=== PATIENT | male | born 1935 | race Caucasian/White ===

== ENCOUNTER 2022-09-17 11:49 | Inpatient (IN) | payer OTHER ==
[~2022-09-17] VITALS: Ht 170.2 cm; Wt 72.6 kg
[2022-09-17 11:55] VITALS: BP 125/78
[2022-09-17] MEDS ORDERED: OMEP40EC23 PO (12:17)
[2022-09-17] MEDS ORDERED: FLUO40CA6 PO (12:17)
[2022-09-17] MEDS ORDERED: GABA600T12 PO (12:17)
[2022-09-17] MEDS ORDERED: FINA5TAB1 PO (12:17)
[2022-09-17] MEDS ORDERED: HYDR-5080 PO (12:17)
[2022-09-17] MEDS ORDERED: FURO-572 PO (12:17)
[2022-09-17] MEDS ORDERED: DOCU-299 PO (12:17)
[2022-09-17] MEDS ORDERED: AMLO5TAB PO (12:17)
[2022-09-17] MEDS ORDERED: FAMO-90 PO (12:17)
[2022-09-17] MEDS ORDERED: METF-346 PO (12:17)
[2022-09-17] MEDS ORDERED: TAMS0.4C96 PO (12:17)
[2022-09-17] MEDS ORDERED: LOSA100T51 PO (12:17)
[2022-09-17] MEDS ORDERED: ALPR1TAB2 PO (12:17)
[2022-09-17] MEDS ORDERED: GLIP5TER PO (12:17)
--- NOTE | 2022-09-17 12:20 | NUR ---
87 Y/O M SRINIVASAJennifer FROM [facility] WITH C/O ABNORMAL LABS. PER EMS FACILITY CALLED 911 STATING PATIENT WITH LOW PLATELETS AND BILATERAL UPPER AND LOWER EXTREMITY HAND AND FEET SWELLING. PT C/O PAIN 9/10 ON HIS SACRAL FOR ONE WEEK. PT DOES HAVE A STAGE TWO SACRAL WOUND. PMH: HTN, DM, ANEMIA, ANXIETY NKDA
--- NOTE | 2022-09-17 12:47 | NUR ---
LAB AT BEDSIDE.
[2022-09-17 13:26] LABS: BASOPHILS % (AUTO) 0.3 % (0.0-2.0); EOSINOPHILS % (AUTO) 0.6 % (0.0-4.0); HEMATOCRIT 22.3 % (36-52); HEMOGLOBIN 7.1 g/dL (12.0-18.0); LYMPHOCYTES # (AUTO) 0.2 K/uL (2.0-11.5); LYMPHOCYTES % (AUTO) 4.4 % (20.5-51.1); MEAN CORPUSCULAR HEMOGLOBIN 28 pg (27-31); MEAN CORPUSCULAR HGB CONC 32 g/dL (33-37); MEAN CORPUSCULAR VOLUME 87.8 fL (80-94); MONOCYTES # (AUTO) 0.2 K/uL (0.8-1.0); MONOCYTES % (AUTO) 4.2 % (1.7-9.3); NEUTROPHILS # (AUTO) 4.6 K/uL (1.8-7.7); NEUTROPHILS % (AUTO) 90.5 % (42.2-75.2); RED BLOOD CELL COUNT(AUTO) 2.54 MIL/uL (4.20-6.10); RED CELL DISTRIBUTION WIDTH 17.8 % (11.6-13.7)
[2022-09-17 13:48] LABS: ANION GAP 14.4 (8-16); CARBON DIOXIDE 20.4 mmol/L (21-32); CHLORIDE 100 mmol/L (98-107); GLUCOSE 112 mg/dL (74-106); POTASSIUM 3.8 mmol/L (3.5-5.1); SODIUM SERUM 131 mmol/L (136-145); UREA NITROGEN, BLOOD 23 mg/dL (7-18)
[2022-09-17 13:50] LABS: PLATELET COUNT (AUTO) 19 K/uL (140-450)
--- NOTE | 2022-09-17 14:22 | NUR ---
MASON SWABED AND WALKED TO THE LAB.
--- NOTE | 2022-09-17 16:05 | NUR ---
ADMITTED FROM ER VIA [facility]. A & O X3. SPEECH CLEAR. NO C/O PAIN. NO SOB, NOTED. EDEMA BUE AND BLE PITTING EDEMA 2+. ELEVATED WITH PILLOWS. PRESSURE ULCER ON SACRAL. EXPLAINED DIAGNOSIS, PLAN OF CARE, PAIN MANAGEMENT TEACHING, USE OF CALL LIGHT/BED/TV/BATHROOM. VERBALIZED UNDERSTANDING. FALL PRECAUTION APPLIED. CALL LIGHT WITHIN REACH.
--- NOTE | 2022-09-17 16:12 | NUR ---
Pt report given to YNES GUO. Transfer of care at this time.
--- NOTE | 2022-09-17 16:20 | NUR ---
PAGED DR. JAMES REGARDING ADMISSION ORDERS.
--- NOTE | 2022-09-17 16:35 | NUR ---
CALLED WILL DANIELS AT [phone] AND SPOKE TO LAYNE LEBLANC REGARDING ADDITIONAL PT. ADMISSION MEDICAL INFORMATION.
--- NOTE | 2022-09-17 16:50 | NUR ---
Patient's Plan of Care was discussed and reviewed with VALUE ANALYST: yaneth lomas
--- NOTE | 2022-09-17 17:00 | NUR ---
The patient's care was reviewed and supervised by Jamaica Lemon RN.
[2022-09-17] MEDS ORDERED: ACETAMINOPHEN 325 MG TAB PO PRN (18:15)
[2022-09-17] MEDS ORDERED: HYDROcodone/APAP 7.5/325 MG 1 TAB PO PRN (18:15)
[2022-09-17] MEDS ORDERED: ZOLPIDEM 5 MG TAB PO PRN (18:15)
[2022-09-17] MEDS ORDERED: POTASSIUM CHLORIDE 10 MEQ TABER PO PRN (18:15)
[2022-09-17] MEDS ORDERED: guaiFENesin DM 200/20 MG-10 ML 10 ML UDC PO PRN (18:15)
[2022-09-17] MEDS ORDERED: DOCUSATE SODIUM 100 MG GELCAP PO PRN (18:15)
[2022-09-17] MEDS ORDERED: ALPRAZolam 0.5 MG TAB PO SCH (18:15)
[2022-09-17] MEDS ORDERED: ONDANSETRON 4 MG/2 ML VIAL IM/IVP PRN (18:15)
--- NOTE | 2022-09-17 19:25 | NUR ---
RECD. RESTING IN BED, AWAKE, A/OX2. RESPIRATION EVEN AND UNLABORED. IV SALINE LOCK AT THE RIGHT AC G2O, PATENT AND INTACT. NOTED BILATERAL EDEMA ON BOTH ARMS AND PITTING EDEMA 2+ ON BLE, ELEVATED ON PILLOWS. ABLE TO VERBALIZED NEEDS. USES THE URINAL. MADE AWARE OF ORDERED PLATELET AND FROZEN FFP TRANSFUSION. NEEDS REINFORCEMENT. DENIES PAIN 0/10.
[2022-09-17 19:55] LABS: AMYLASE 19 U/L (25-115); CHOL/HDL RATIO 3.1 (1-4.5); HDL CHOLESTEROL 31 mg/dL (40-60); LDL (CALC) 56 mg/dL (60-100); LIPASE 41 U/L (73-393); MAGNESIUM 1.6 mg/dL (1.8-2.4); THYROID STIMULATING HORMONE 3.21 uIU/mL (0.34-3.74); TRIGLYCERIDES 41 mg/dL (30-150)
[2022-09-17 20:00] VITALS: BP 121/57
--- NOTE | 2022-09-17 21:20 | NUR ---
TAKEN TO RADIOLOGY VIA BED FOR CT SCAN OF ABD AND PELVIS WITHOUT CONTRAST.
--- NOTE | 2022-09-17 21:45 | NUR ---
ROCEPHIN IVPB ADMINISTERED BY PENNY GUO. TOLERATED WELL.
[2022-09-17] MEDS: metFORMIN 500 MG TAB PO SCH (21:58)
--- NOTE | 2022-09-17 22:40 | NUR ---
FOLLOW UP WITH IVETTE OF BLOOD BANK, PLATELET FOR TRANSFUSION WILL BE AVAILABLE AFTER THREE HOURS, WAS ALREADY ORDERED BY LAB.
[2022-09-18] VITALS: BP 100/50
--- NOTE | 2022-09-18 | NUR ---
SLEEPING COMFORTABLY IN BED. RESPIRATION EVEN AND UNLABORED.
--- NOTE | 2022-09-18 02:25 | NUR ---
1 UNIT PHERESIS PLATELET INFUSION STARTED, WILL MONITOR FOR ANY SIGNS OF REACTION.
--- NOTE | 2022-09-18 03:25 | NUR ---
PLATELET TRANSFUSION FINISHED, NO SIGNS OF REACTION NOTED.
[2022-09-18 04:00] VITALS: BP 136/61
--- NOTE | 2022-09-18 04:15 | NUR ---
SENT TO MESSAGE TO DR. JAMES. TRANSFUSION DONE, LAB INQUIRING IF STILL NEEDED TO GIVE PLASMA SO THEY CAN ORDER.
--- NOTE | 2022-09-18 06:05 | NUR ---
DR JAMES REPLIED TO GIVE THE ORDERED PLASMA. INFORMED LAB ABOUT IT.
--- NOTE | 2022-09-18 07:15 | NUR ---
RECEIVED REPORT FROM NIGHT NURSE BILLIE FOR CONTINUITY OF CARE. INITIAL ASSESSMENT DONE. IV SITE INTACT. ON O2 @ 2L/NC. CURRENTLY ON NPO EXCEPT MEDS. NO C/O PAIN OR DISCOMFORT. CALL LIGHT KEPT WITHIN REACH. WILL CONTINUE TO MONITOR.
[2022-09-18 07:16] LABS: BASOPHILS % (AUTO) 0.4 % (0.0-2.0); EOSINOPHILS # (AUTO) 0.1 K/uL (0-0.4); EOSINOPHILS % (AUTO) 1.6 % (0.0-4.0); HEMATOCRIT 21.4 % (36-52); LYMPHOCYTES # (AUTO) 0.3 K/uL (2.0-11.5); LYMPHOCYTES % (AUTO) 5.4 % (20.5-51.1); MEAN CORPUSCULAR HEMOGLOBIN 28 pg (27-31); MEAN CORPUSCULAR HGB CONC 33 g/dL (33-37); MEAN CORPUSCULAR VOLUME 86.3 fL (80-94); MONOCYTES # (AUTO) 0.3 K/uL (0.8-1.0); NEUTROPHILS # (AUTO) 4.3 K/uL (1.8-7.7); NEUTROPHILS % (AUTO) 86.6 % (42.2-75.2); PLATELET COUNT (AUTO) 33 K/uL (140-450); RED BLOOD CELL COUNT(AUTO) 2.48 MIL/uL (4.20-6.10); RED CELL DISTRIBUTION WIDTH 17.8 % (11.6-13.7)
--- NOTE | 2022-09-18 07:20 | NUR ---
ENDORSED TO AM SHIFT NURSE FOR CONTINUITY OF CARE.
[2022-09-18 07:31] LABS: ANION GAP 12.5 (8-16); CARBON DIOXIDE 24.3 mmol/L (21-32); CHLORIDE 98 mmol/L (98-107); CREATININE 0.9 mg/dL (0.6-1.3); GLUCOSE 129 mg/dL (74-106); POTASSIUM 3.8 mmol/L (3.5-5.1); SODIUM SERUM 131 mmol/L (136-145); UREA NITROGEN, BLOOD 20 mg/dL (7-18)
[2022-09-18 08:00] VITALS: BP 149/67
[2022-09-18 08:08] LABS: T4 (THYROXINE) 7.9 ug/dL (4.5-12.0)
[2022-09-18] MEDS ORDERED: NON-FORMULARY ITEM (Losartan Potassium 1 TAB) PO SCH (09:00)
[2022-09-18] MEDS: TAMSULOSIN 0.4 MG CAP PO SCH (10:05)
[2022-09-18] MEDS: ALPRAZolam 0.5 MG TAB PO SCH ×3 (10:06→18:37)
[2022-09-18] MEDS: LOSARTAN 50 MG TAB PO SCH (10:06)
[2022-09-18] MEDS: PANTOPRAZOLE 40 MG TABEC PO SCH (10:07)
[2022-09-18] MEDS: glipiZIDE ER 5 MG TABER PO SCH (10:07)
[2022-09-18] MEDS: FUROSEMIDE 20 MG TAB PO SCH (10:07)
[2022-09-18] MEDS: FINASTERIDE 5 MG TAB PO SCH (10:07)
--- NOTE | 2022-09-18 10:07 | NUR ---
SCHEDULED MEDICATIONS GIVEN. TOLERATING WELL.
[2022-09-18] MEDS: MAGNESIUM OXIDE 400 MG TAB PO SCH (10:08)
[2022-09-18] MEDS: FLUoxetine 20 MG CAP PO SCH (10:08)
[2022-09-18] MEDS: amLODIPine 5 MG TAB PO SCH (10:08)
[2022-09-18] MEDS: metFORMIN 500 MG TAB PO SCH ×2 (10:24→18:37)
--- NOTE | 2022-09-18 10:40 | NUR ---
URINE SPECIMEN COLLECTED VIA CLEAN CATCH. SEND TO LAB.
--- NOTE | 2022-09-18 11:40 | NUR ---
FRESH FROZEN PLASMA TRANSFUSION STARTED. NO ADVERSE REACTION NOTED.
--- NOTE | 2022-09-18 12:44 | NUR ---
PATIENT HAS BEEN SCREENED AND CATEGORIZED HIGH NUTRITION RISK. PATIENT WILL BE SEEN WITHIN 1-2 DAYS OF ADMISSION. RAVI STUBBS RD
--- NOTE | 2022-09-18 13:24 | NUR ---
PT DAUGHTER AT BEDSIDE REQUESTING FOR DIET UPGRADE AND CONT HOME MED GABAPENTIN. DR. JAMES NOTIFIED, RECEIVED NEW ORDERS: UPGRADE DIET TO MECH SOFT, GABAPENTIN 300 MG TID. NOTED AND CARRIED OUT.
[2022-09-18 14:53] LABS: APPEARANCE,URINE CLEAR (CLEAR); BILIRUBIN,URINE NEGATIVE (NEGATIVE); BLOOD, URINE NEGATIVE (NEGATIVE); COLOR,URINE YELLOW (YELLOW); LEUKOCYTE ESTERASE ,URINE NEGATIVE (NEGATIVE); NITRITE, URINE NEGATIVE (NEGATIVE); PH,URINE 5.5 (5.0-9.0); UGLUCOSE NEGATIVE (NEGATIVE)
--- NOTE | 2022-09-18 15:20 | NUR ---
ADMINISTERED SCHEDULED MEDICATIONS. TOLERATING WELL.
--- NOTE | 2022-09-18 15:22 | NUR ---
FRESH FROZEN PLASMA TRANSFUSION COMPLETED. TOLERATING WELL. NO ADVERSE REACTION NOTED.
--- NOTE | 2022-09-18 15:35 | NUR ---
DC PLANNING ASSESSMENT COMPLETE PLEASE REFER TO ASSESSMENT FOR ADDITIONAL DETAILS SW MET WITH PT AND PT'S DAUGHTER AT BEDSIDE TO COMPLETE ASSESSMENT. PT IS AN 87 YR OLD MALE ADMITTED TO [facility] FROM HOME WITH DX OF THROMBOCYTOPENIA. PT HAS PAST MEDICAL HX OF HYPERTENSION, DIABETES, AND ANEMIA, CURRENTLY BEING TREATED WITH ANTIBIOTICS FOR PNEUMONIA. PT IS REPORTED TO UTILIZE FWW, WC AND IS REPORTED TO REQUIRE ASSISTANCE WITH ADL'S THAT [employer] [facility] WITH. PT CURRENTLY IN SKILLED CARE WITH [facility], RECEIVING PT AND OT. DATE OF ADMISSION 09/09/22 PT AND PT'S DAUGHTER ARLEEN REPORT TENTATIVE DC PLAN IS FOR PT TO RETURN TO [facility] ONCE MEDICALLY STABLE. Addendum: 09/18/22 at 1536 by Kanu GARNICA Amended: Links added.
--- NOTE | 2022-09-18 18:01 | NUR ---
P.T. NOTES P.T. EVAL COMPLETED; REFER TO EVAL FOR DETAILS.
--- NOTE | 2022-09-18 18:37 | NUR ---
SCHEDULED MEDICATIONS GIVEN. TOLERATING WELL.
--- NOTE | 2022-09-18 19:30 | NUR ---
BEDSIDE REPORT GIVEN TO SU FOR CONTINUITY OF CARE. REMAINS STABLE.
--- NOTE | 2022-09-18 19:31 | NUR ---
RECEIVED REPORT FROM BRANT JENKINS FOR CONTINUITY OF CARE. PT AWAKE IN BED. ON 2L NC SATTING AT 95%. NO DISTRESS NOTED. INITIAL ASSESSMENT DONE. POC DISCUSSED WITH PT AND BRANT LOCO. CALL LIGHT WITHIN REACH. SAFETY PRECAUTIONS IN PLACE.
[2022-09-18 20:00] VITALS: BP 121/58
--- NOTE | 2022-09-18 20:00 | NUR ---
Patient's Plan of Care was discussed and reviewed with LEAD JAVA DEVELOPER ARCHITECT: SU AGUAYO
[2022-09-19 04:00] VITALS: BP 119/56
--- NOTE | 2022-09-19 05:06 | NUR ---
DID MORNING CARE. PT TOLERATED WELL. PT REMAINED CLEAN AND DRY. NO COMPLAINTS OF PAIN. NO DISTRESS NOTED. SAFETY PRECAUTIONS IN PLACE.
--- NOTE | 2022-09-19 07:10 | NUR ---
[facility] CONTINUITY OF CARE. INITIAL ASSESSMENT DONE. IV SITE INTACT. ON CONT O2 l/NC. nO RESPIRATORY DISTRESS NOTED. CALL LIGHT KEPT WITHIN REACH. WILL CONTINUE TO MONITOR.
--- NOTE | 2022-09-19 07:15 | NUR ---
GAVE BEDSIDE REPORT TO CECILLE JENKINS FOR CONTINUITY OF CARE. PT IS STABLE.
[2022-09-19 07:43] LABS: BASOPHILS % (AUTO) 0.1 % (0.0-2.0); EOSINOPHILS # (AUTO) 0.1 K/uL (0-0.4); EOSINOPHILS % (AUTO) 1.8 % (0.0-4.0); LYMPHOCYTES # (AUTO) 0.2 K/uL (2.0-11.5); LYMPHOCYTES % (AUTO) 4.3 % (20.5-51.1); MEAN CORPUSCULAR HEMOGLOBIN 28 pg (27-31); MEAN CORPUSCULAR HGB CONC 33 g/dL (33-37); MEAN CORPUSCULAR VOLUME 85.4 fL (80-94); MONOCYTES # (AUTO) 0.2 K/uL (0.8-1.0); MONOCYTES % (AUTO) 4.9 % (1.7-9.3); NEUTROPHILS # (AUTO) 3.6 K/uL (1.8-7.7); NEUTROPHILS % (AUTO) 88.9 % (42.2-75.2); PLATELET COUNT (AUTO) 25 K/uL (140-450); RED BLOOD CELL COUNT(AUTO) 2.12 MIL/uL (4.20-6.10); RED CELL DISTRIBUTION WIDTH 17.3 % (11.6-13.7); WHITE BLOOD COUNT (AUTO) 4.1 K/uL (4.8-10.8)
[2022-09-19 07:53] LABS: ANION GAP 11.3 (8-16); CARBON DIOXIDE 24.3 mmol/L (21-32); CHLORIDE 100 mmol/L (98-107); CREATININE 0.7 mg/dL (0.6-1.3); GLUCOSE 134 mg/dL (74-106); POTASSIUM 3.6 mmol/L (3.5-5.1); SODIUM SERUM 132 mmol/L (136-145); UREA NITROGEN, BLOOD 21 mg/dL (7-18)
[2022-09-19 08:00] VITALS: BP 127/54
--- NOTE | 2022-09-19 08:00 | NUR ---
Patient's Plan of Care was discussed and reviewed with CECILLE: MIRTA
[2022-09-19 08:22] LABS: HEMATOCRIT 18.1 % (36-52)
--- NOTE | 2022-09-19 08:29 | NUR ---
RECEIVED CRITICAL LAB RESULT HGB 6.0, HCT 18.1. DR. JAMES NOTIFIED AWAITING FOR RESPONSE.
[2022-09-19] MEDS: ALPRAZolam 0.5 MG TAB PO SCH ×3 (08:43→18:20)
[2022-09-19] MEDS: metFORMIN 500 MG TAB PO SCH ×2 (08:43→18:20)
[2022-09-19] MEDS: TAMSULOSIN 0.4 MG CAP PO SCH (08:43)
[2022-09-19] MEDS: FUROSEMIDE 20 MG TAB PO SCH (08:44)
[2022-09-19] MEDS: MAGNESIUM OXIDE 400 MG TAB PO SCH (08:44)
[2022-09-19] MEDS: FINASTERIDE 5 MG TAB PO SCH (08:44)
[2022-09-19] MEDS: amLODIPine 5 MG TAB PO SCH (08:45)
[2022-09-19] MEDS: PANTOPRAZOLE 40 MG TABEC PO SCH (08:45)
[2022-09-19] MEDS: glipiZIDE ER 5 MG TABER PO SCH (08:45)
[2022-09-19] MEDS: LOSARTAN 50 MG TAB PO SCH (08:45)
--- NOTE | 2022-09-19 08:45 | NUR ---
SCHEDULED MEDICATIONS GIVEN. TOLERATING WELL.
[2022-09-19] MEDS: FLUoxetine 20 MG CAP PO SCH (08:46)
[2022-09-19] MEDS: GABAPENTIN 300 MG CAP PO SCH ×3 (08:46→18:20)
--- NOTE | 2022-09-19 09:53 | NUR ---
RECEIVED NEW ORDER FROM DR. JAMES, 1 PACKED RBC. ORDER NOTED AND CARRIED OUT.
[2022-09-19] MEDS: SKINTEGRITY HYDROGEL TP SCH (12:50)
[2022-09-19] MEDS ORDERED: Z-GUARD PASTE TP PRN (12:50)
--- NOTE | 2022-09-19 12:50 | NUR ---
WOUND CARE DONE. NO BLEEDING, NO REDNESS. TOLERATING WELL.
--- NOTE | 2022-09-19 13:46 | NUR ---
BLOOD TRANSFUSION PACKED RBC STARTED. NO ADVERSE REACTION NOTED.
--- NOTE | 2022-09-19 14:17 | NUR ---
PT COMPLAINING SOB, INCREASED O2 TO 4L/NC. NOTED WHEEZING. DR. JAMES NOTIFIED WITHN EW ORDER CHEST X-RAY. NOTED AND CARRIED OUT.
--- NOTE | 2022-09-19 14:55 | NUR ---
09/19/22 RD INITIAL ASSESSMENT COMPLETED PLEASE REFER TO NUTRITION ASSESSMENT UNDER CARE ACTIVITY FOR ESTIMATED NUTRITIONAL NEEDS. 1. CONTINUE MECHANICAL SOFT DIET TOLERATED 2. RECOMMEND WU BID - WILL PROVIDE 160 KCALS, 5 G PROTEIN 3. MONITOR GI, PO INTAKE, LAB VALUES. 4. RD TO FOLLOW-UP 3-5 DAYS, MODERATE RISK REVIEWED BY RAVI STUBBS RD
--- NOTE | 2022-09-19 15:09 | NUR ---
SCHEDULED PO MEDICATIONS GIVEN. TOLERATING WELL.
[2022-09-19 16:00] VITALS: BP 120/66
--- NOTE | 2022-09-19 17:05 | NUR ---
RECEIVED CALLED FROM JOSSIE DANIELS SPOKE TO STEPAN. QUESTIONS ANSWERED.
--- NOTE | 2022-09-19 17:10 | NUR ---
BLOOD TRANSFUSION COMPLETED. NO ADVERSE REACTION NOTED.
--- NOTE | 2022-09-19 18:20 | NUR ---
SCHEDULED MEDICATIONS GIVEN. TOLERATING WELL.
--- NOTE | 2022-09-19 19:15 | NUR ---
REPORT GIVEN TO TODD FOR CONTINUITY OF CARE. REMAINS STABLE.
--- NOTE | 2022-09-19 19:20 | NUR ---
RECEIVED REPORT FROM DAY SHIFT NURSE FOR CONTINUITY OF CARE. PT IS CURRENTLY RESTING IN BED. PT NOT IN ANY DISTRESS. PT HAS RIGHT AC 20 GAUGE SALINE LOCK. WOUND ON SACRAL. WILL CONTINUE TO MONITOR THE PT.
--- NOTE | 2022-09-20 03:00 | NUR ---
PT IS SLEEPING COMFORTABLY IN BED. PT NOT IN ANY DISTRESS. WILL CONTINUE TO MONITOR.
[2022-09-20 04:00] VITALS: BP 141/71
--- NOTE | 2022-09-20 07:05 | NUR ---
RECEIVED REPORT FROM NIGHT NURSE TODD FOR CONTINUITY OF CARE. ONT CONT. O2 2L VIA N/C. IV INTACT. NOT IN ANY DISTRESS NOTED. CALL LIGHT KEPT WITHIN REACH. WILL CONTINUE TO MONITOR.
--- NOTE | 2022-09-20 07:10 | NUR ---
ENDORSED PT TO DAY SHIFT NURSE FOR CONTINUITY OF CARE. PT IS STABLE.
[2022-09-20 07:21] LABS: ANION GAP 13.8 (8-16); CARBON DIOXIDE 22.9 mmol/L (21-32); CHLORIDE 102 mmol/L (98-107); CREATININE 0.8 mg/dL (0.6-1.3); GLUCOSE 139 mg/dL (74-106); POTASSIUM 3.7 mmol/L (3.5-5.1); SODIUM SERUM 135 mmol/L (136-145); UREA NITROGEN, BLOOD 16 mg/dL (7-18)
[2022-09-20 07:26] LABS: HEMATOCRIT 21.7 % (36-52); HEMOGLOBIN 7.2 g/dL (12.0-18.0); MEAN CORPUSCULAR HEMOGLOBIN 29 pg (27-31); MEAN CORPUSCULAR HGB CONC 33 g/dL (33-37); MEAN CORPUSCULAR VOLUME 86.9 fL (80-94); PLATELET COUNT (AUTO) 27 K/uL (140-450); RED CELL DISTRIBUTION WIDTH 17.2 % (11.6-13.7); WHITE BLOOD COUNT (AUTO) 4.8 K/uL (4.8-10.8)
[2022-09-20 08:00] VITALS: BP 143/51
[2022-09-20] MEDS: SKINTEGRITY HYDROGEL TP SCH (08:34)
[2022-09-20] MEDS: FINASTERIDE 5 MG TAB PO SCH (08:35)
[2022-09-20] MEDS: LOSARTAN 50 MG TAB PO SCH (08:35)
[2022-09-20] MEDS: amLODIPine 5 MG TAB PO SCH (08:35)
[2022-09-20] MEDS: GABAPENTIN 300 MG CAP PO SCH ×3 (08:35→18:20)
[2022-09-20] MEDS: glipiZIDE ER 5 MG TABER PO SCH (08:36)
[2022-09-20] MEDS: ALPRAZolam 0.5 MG TAB PO SCH ×3 (08:36→18:20)
[2022-09-20] MEDS: TAMSULOSIN 0.4 MG CAP PO SCH (08:36)
[2022-09-20] MEDS: FLUoxetine 20 MG CAP PO SCH (08:36)
[2022-09-20] MEDS: metFORMIN 500 MG TAB PO SCH ×2 (08:36→18:20)
--- NOTE | 2022-09-20 08:36 | NUR ---
SCHEDULED PO MEDICATIONS GIVEN. TOLERATING WELL.
[2022-09-20] MEDS: MAGNESIUM OXIDE 400 MG TAB PO SCH (08:37)
[2022-09-20] MEDS: PANTOPRAZOLE 40 MG TABEC PO SCH (08:37)
[2022-09-20] MEDS: FUROSEMIDE 20 MG TAB PO SCH (08:37)
[2022-09-20 10:14] LABS: EOSINOPHILS % (MANUAL) 3 % (0-4); LYMPHOCYTES % (MANUAL) 4 % (20-46); MONOCYTES % (MANUAL) 6 % (5-12)
[2022-09-20 13:15] LABS: ALBUMIN 1.7 g/dL (3.4-5.0); TOTAL BILIRUBIN 0.9 mg/dL (0.0-1.0)
[2022-09-20 13:24] LABS: BILIRUBIN,DIRECT 0.3 mg/dL (0.0-0.3)
--- NOTE | 2022-09-20 13:30 | NUR ---
REASON FOR EVALUATION: SACRAL ULCER WOUND ASSESSMENT COMPLETED ON THIS 87 Y/O MALE ADMITTED TO [facility] UN[facility] FOR THROMBOCYTOPENIA. PATIENT IS FROM [facility]. PAST MEDICAL HISTORY INCLUDES HYPERTENSION, ANEMIA, BLOOD DISORDER, DIABETES. ALL ABOVE INFORMATION WAS OBTAINED FROM THE ADMISSION H&P. SKIN IS WARM TO TOUCH. REQUIRES ASSISTANCE WITH TURNING. PLAN OF CARE AND PRESSURE PREVENTATIVE MEASURES DISCUSSED WITH PATIENT AND PRIMARY RN. PATIENT UNABLE TO COMPREHEND. PATIENT ADMITTED WITH PRESSURE ULCER TO [facility] COMORBIDITIES RELATED TO FURTHER SKIN BREAKDOWN SUCH IMPAIRED. INTEGUMENTARY: - SACRALCOCCYX STAGE II PRESSURE ULCER 9 X 5 X 0.1 CM, SUPERFICIAL, NON-BLANCHABLE, NO DRAINAGE, NO ODOR. PERIWOUND PINK, DRY, INTACT. RECOMMENDATIONS: - SACRALCOCCYX STAGE II PRESSURE ULCER: CLEANSE WITH NS, PAT DRY, APPLY HYDROGEL, AND COVER WITH FOAM DRESSING DAILY AND PRN IF SOILED. - OFFLOAD BILATERAL HEELS BY PLACING BILATERAL HEEL PROTECTORS. - TURN AND REPOSITION PATIENT Q2H TO LEFT AND RIGHT SIDE TO OFFLOAD SACRALCOCCYX. - ASSESS AND MONITOR SKIN CONDITION DURING POSITION CHANGE. PLEASE PAY ATTENTION TO SACRALCOCCYX AND HEELS. - KEEP SKIN DRY AND CLEAN AT ALL TIMES. - RD CONSULT RECOMMENDATIONS DISCUSSED WITH PRIMARY RN. WILL FOLLOW-UP PATIENT Q7-10 DAYS AND PRN. PLEASE CONTACT WOUND CARE NURSE FOR ANY CONCERNS AND CHANGES IN WOUND CONDITION.
--- NOTE | 2022-09-20 13:34 | NUR ---
DR. HERRING NOTIFIED LAB RESULT RESULT HGB 7.2 WITH NO NEW ORDER AT THIS TIME.
--- NOTE | 2022-09-20 14:09 | NUR ---
SCHEDULED MEDICATIONS GIVEN. TOLERATING WELL. STOOL SPECIMEN COLLECTED FOR STOOL OCCULT BLOOD.
--- NOTE | 2022-09-20 18:20 | NUR ---
ADMINISTERED SCHEDULED MEDICATIONS. TOLERATING WELL.
--- NOTE | 2022-09-20 19:20 | NUR ---
REPORT GIVEN TO NIGHT NURSE TODD FOR CONTINUITY OF CARE. REMAINS STABLE.
--- NOTE | 2022-09-20 19:25 | NUR ---
RECEIVED REPORT FROM DAY SHIFT NURSE ALICE FOR CONTINUITY OF CARE. PT IS CURRENTLY RESTING IN BED. PT NOT IN ANY DISTRESS. PT HAS RIGHT AC 20 GAUGE SALINE LOCK. WOUND ON SACRAL. POC DISCUSSED. WILL CONTINUE TO MONITOR THE PT.
[2022-09-20 20:00] VITALS: BP 128/75
--- NOTE | 2022-09-21 00:35 | NUR ---
PT IS SLEEPING COMFORTABLY IN BED. PT NOT IN ANY DISTRESS. WILL CONTINUE TO MONITOR.
[2022-09-21] MEDS: SKINTEGRITY HYDROGEL TP SCH ×3 (01:02→21:32)
[2022-09-21] MEDS: GAUZE TP SCH ×3 (01:02→21:32)
--- NOTE | 2022-09-21 03:33 | NUR ---
PT WAS CLEANED AND CHANGED. TOLERATED IT WELL. DRESSING CHANGED. WILL CONTINUE TO MONITOR THE PT.
[2022-09-21 04:00] VITALS: BP 114/59
[2022-09-21 07:16] LABS: BASOPHILS % (AUTO) 0.2 % (0.0-2.0); EOSINOPHILS # (AUTO) 0.1 K/uL (0-0.4); EOSINOPHILS % (AUTO) 2.4 % (0.0-4.0); HEMATOCRIT 21.1 % (36-52); HEMOGLOBIN 7.1 g/dL (12.0-18.0); LYMPHOCYTES # (AUTO) 0.2 K/uL (2.0-11.5); LYMPHOCYTES % (AUTO) 4.3 % (20.5-51.1); MEAN CORPUSCULAR HEMOGLOBIN 29 pg (27-31); MEAN CORPUSCULAR HGB CONC 34 g/dL (33-37); MEAN CORPUSCULAR VOLUME 85.4 fL (80-94); MONOCYTES # (AUTO) 0.2 K/uL (0.8-1.0); MONOCYTES % (AUTO) 3.6 % (1.7-9.3); NEUTROPHILS # (AUTO) 3.9 K/uL (1.8-7.7); NEUTROPHILS % (AUTO) 89.5 % (42.2-75.2); PLATELET COUNT (AUTO) 26 K/uL (140-450); RED BLOOD CELL COUNT(AUTO) 2.47 MIL/uL (4.20-6.10); RED CELL DISTRIBUTION WIDTH 17.1 % (11.6-13.7); WHITE BLOOD COUNT (AUTO) 4.4 K/uL (4.8-10.8)
--- NOTE | 2022-09-21 07:20 | NUR ---
ENDORSED PT TO DAY SHIFT RN FOR CONTINUITY OF CARE. PT IS STABLE.
[2022-09-21 07:22] LABS: ANION GAP 12.9 (8-16); CARBON DIOXIDE 23.8 mmol/L (21-32); CHLORIDE 102 mmol/L (98-107); CREATININE 0.8 mg/dL (0.6-1.3); GLUCOSE 129 mg/dL (74-106); POTASSIUM 3.7 mmol/L (3.5-5.1); SODIUM SERUM 135 mmol/L (136-145); UREA NITROGEN, BLOOD 15 mg/dL (7-18)
[2022-09-21 08:00] VITALS: BP 130/62
--- NOTE | 2022-09-21 08:00 | NUR ---
NURSE REPORT REPORT OBTAINED FROM NIGHT NURSE TODD AT 0720 AND THIS NURSE ASSUMED CARE OF PATIENT. VSS. AFEB. NO C/O PAIN OR DISCOMFORT. KELLEN GRIFFITH RN
[2022-09-21] MEDS: FLUoxetine 20 MG CAP PO SCH (08:55)
[2022-09-21] MEDS: metFORMIN 500 MG TAB PO SCH ×2 (08:55→18:31)
[2022-09-21] MEDS: glipiZIDE ER 5 MG TABER PO SCH (08:56)
[2022-09-21] MEDS: PANTOPRAZOLE 40 MG TABEC PO SCH (08:56)
[2022-09-21] MEDS: FINASTERIDE 5 MG TAB PO SCH (08:57)
[2022-09-21] MEDS: FUROSEMIDE 20 MG TAB PO SCH (08:57)
[2022-09-21] MEDS: GABAPENTIN 300 MG CAP PO SCH ×3 (08:57→18:31)
[2022-09-21] MEDS: LOSARTAN 50 MG TAB PO SCH (09:04)
[2022-09-21] MEDS: amLODIPine 5 MG TAB PO SCH (09:05)
[2022-09-21] MEDS: MAGNESIUM OXIDE 400 MG TAB PO SCH (09:06)
[2022-09-21] MEDS: TAMSULOSIN 0.4 MG CAP PO SCH (09:13)
[2022-09-21] MEDS: ALPRAZolam 0.5 MG TAB PO SCH ×3 (09:13→18:31)
--- NOTE | 2022-09-21 11:45 | NUR ---
NURSE DISCHARGE NOTE D/C INSTRUCTIONS GIVEN TO PATIENT. PATIENT ALREADY REMOVED HER OWN SL. CATHETER INTACT. NO BLEEDING. PATIENT VERBALIZED UNDERSTANDINGS OF INSTRUCTIONS. PATIENT ABLE TO AMBULATE OUTSIDE WITH STEADY GAIT. HER BABY DAD WAS PICKING HER UP. SHE REFUSED TO GIVE THE NAME OF THE PERSON.
--- NOTE | 2022-09-21 13:41 | NUR ---
NURSE NOTES DR HERRING WAS SENT MESSAGE TO CALL PATIENT DAUGHTER. HE ISN'T EATING MUCH AND CONDITION HAS WORSENED SINCE HE GOT HERE. WHEEZING HAS INCREASED.
[2022-09-21] MEDS ORDERED: ALBUTEROL 0.083% 2.5 MG/3 ML NEBU INH ONE (14:17)
--- NOTE | 2022-09-21 19:45 | NUR ---
NURSE REPORT REPORT GIVEN TO MADIE NURSE ARTI. ALL QUESTIONS ANSWERED. KELLEN GRIFFITH RN
[2022-09-21 20:07] VITALS: BP 130/62
--- NOTE | 2022-09-22 00:13 | NUR ---
PATIENT STABLE VITALS SIGNS IN NORMAL LIMITS SPO2 96% AT 3 LITERS CHANGED BY RT NOT COMPLAINING OF PAIN AT THIS TIME
--- NOTE | 2022-09-22 03:40 | NUR ---
PATIENT STABLE VITALS SIGNS IN NORMAL LIMITS NOT COMPLAINING OF PAIN SPO2 96% AT 3 LITTERS
[2022-09-22 04:00] VITALS: BP 137/63
--- NOTE | 2022-09-22 06:53 | NUR ---
PATIENT STABLE VITALS SIGNS IN NORMAL LIMITS NOT COMPLAINING OF PAIN AT THIS TIME
[2022-09-22] MEDS: metFORMIN 500 MG TAB PO SCH ×2 (08:00→17:00)
[2022-09-22 08:41] LABS: BASOPHILS % (AUTO) 0.2 % (0.0-2.0); EOSINOPHILS # (AUTO) 0.1 K/uL (0-0.4); EOSINOPHILS % (AUTO) 2.2 % (0.0-4.0); HEMATOCRIT 21.7 % (36-52); HEMOGLOBIN 7.1 g/dL (12.0-18.0); LYMPHOCYTES # (AUTO) 0.2 K/uL (2.0-11.5); LYMPHOCYTES % (AUTO) 7.5 % (20.5-51.1); MEAN CORPUSCULAR HEMOGLOBIN 29 pg (27-31); MEAN CORPUSCULAR HGB CONC 33 g/dL (33-37); MEAN CORPUSCULAR VOLUME 86.6 fL (80-94); MONOCYTES # (AUTO) 0.1 K/uL (0.8-1.0); MONOCYTES % (AUTO) 4.6 % (1.7-9.3); NEUTROPHILS # (AUTO) 2.5 K/uL (1.8-7.7); NEUTROPHILS % (AUTO) 85.5 % (42.2-75.2); PLATELET COUNT (AUTO) 22 K/uL (140-450); RED CELL DISTRIBUTION WIDTH 17.1 % (11.6-13.7); WHITE BLOOD COUNT (AUTO) 2.9 K/uL (4.8-10.8)
[2022-09-22 08:55] LABS: ANION GAP 13.6 (8-16); CARBON DIOXIDE 22.9 mmol/L (21-32); CHLORIDE 102 mmol/L (98-107); CREATININE 0.7 mg/dL (0.6-1.3); GLUCOSE 148 mg/dL (74-106); POTASSIUM 3.5 mmol/L (3.5-5.1); SODIUM SERUM 135 mmol/L (136-145); UREA NITROGEN, BLOOD 15 mg/dL (7-18)
[2022-09-22] MEDS: ALPRAZolam 0.5 MG TAB PO SCH ×3 (09:00→17:00)
[2022-09-22] MEDS: LOSARTAN 50 MG TAB PO SCH (09:24)
[2022-09-22] MEDS: TAMSULOSIN 0.4 MG CAP PO SCH (09:25)
[2022-09-22] MEDS: glipiZIDE ER 5 MG TABER PO SCH (09:25)
[2022-09-22] MEDS: FUROSEMIDE 20 MG TAB PO SCH (09:26)
[2022-09-22] MEDS: GABAPENTIN 300 MG CAP PO SCH ×3 (09:27→17:00)
[2022-09-22] MEDS: MAGNESIUM OXIDE 400 MG TAB PO SCH (09:27)
[2022-09-22] MEDS: amLODIPine 5 MG TAB PO SCH (09:36)
[2022-09-22] MEDS: FINASTERIDE 5 MG TAB PO SCH (09:36)
[2022-09-22] MEDS: PANTOPRAZOLE 40 MG TABEC PO SCH (09:36)
[2022-09-22] MEDS: FLUoxetine 20 MG CAP PO SCH (09:37)
--- NOTE | 2022-09-22 11:05 | NUR ---
DC PLANNING: PATIENT HAS AN ORDER TO TRANSFER TO [facility] PER FAMILY REQUEST. FAXED TO [facility] INSURANCE AND CONTRACTED FACILITY [facility]. CM TO FOLLOW Addendum: 09/22/22 at 1612 by Stephany Cortez RN DC PLANNING: RECEIVED A CALL FROM [facility] SPOKE WITH ERAN STATED HER PEER FINANCIAL COUNSELOR WON'T APPROVE THE TRANSFER FOR FAMILY REQUEST IF MD DAVISON CAN CALL PEER TO PEER. NOTIFIED DR HERRING STATED SHE CONSULTED WITH DR LAINEZ AND AWAITING FOR HIS RECOMMENDATION. CM TO FOLLOW Addendum: 09/23/22 at 1413 by Stephany Cortez RN DC PLANNING: RECEIVED A CALL FROM ERAN GLORIA AT [facility] REQUESTED OUR TO CALL DR UMANZOR NOTIFIED DR HERRING PROVIDE DR UMANZOR'S NUMBER. ERAN CALLED BACK STATED AFTER THE PEER TO PEER OK TO TRANSFER PATIENT TO [facility]. FAXED ALL PAPER WORK TO [facility] SPOKE WITH MAYNOR AT TRANSFER CENTER REQUESTING COVID PCR. ORDER PCR COVID. CM TO FOLLOW Addendum: 09/23/22 at 1536 by Stephany Cortez RN DC PLANNING: RECEIVED A CALL FROM [facility] SPOKE MAYNOR STATED HER ACCEPTING DR MO CAN NOT TRANSFER WITH BIPAP. CHECKED WITH THE NURSE PT IS STILL WITH BIPAP 30% FIO2, CHECKED WITH [facility] OK TO TRANSFER WITH [facility] . AUTH FROM [facility] [phone] . ARRANGED TRANSPORT WITH [facility] IT WILL CALL. PER MAYNOR AT [facility] STATED PER DR UMANZOR NOT STABLE FOR TRANSFER WITH BIPAP AND TO CALL THEM WHEN OFF BIPAP. CM TO FOLLOW Addendum: 09/24/22 at 1440 by Stephany Cortez RN DC PLANNING: CALLED [facility] TRANSFER [facility]ENTER SPOKE WITH ANDRES MO NEEDS A PCR COVID TEST, ABG AND CXR STILL HAS NO BED .CM TO FOLLOW Addendum: 09/24/22 at 1639 by Stephany Cortez RN DC PLANNING: RECEIVED A CALL FROM [facility] SPOKE WITH AMENA MO THE ACCEPTING REQUESTING CT HEAD FAXED THE CT HEAD . AWAITING FOR THE RESPONSE . CM TO FOLLOW Addendum: 09/26/22 at 1135 by Stephany Cortez RN DC PLANNING: RECEIVED A MESSAGE FROM PT'S DAUGHTER STATED NO TRANSFERRING TO [facility] FOR HLOC INSTEAD FAMILY AGREED TO SIGN WITH [facility]. JUANI CALLED ARLEEN AND CLARIFIED PER ARLEEN WILL MEET WITH [facility] TODAY AT 3:30 PM AT [facility] AND WANTED TO BE DC TOMORROW. JUANI FAXED THE ORDER TO [facility] [phone] AND LEFT A MESSAGE FOR THE LIAISON [phone] JUANI TO FOLLOW
--- NOTE | 2022-09-22 11:29 | NUR ---
FNS NUTRITION CONSULT RECEIVED FROM FOR MALNUTRITION. PT WILL BE SEEN WITHIN 1 DAY OF CONSULT.
[2022-09-22] MEDS: DEXT 5% /NACL 0.9% 1,000 ML IV SCH (11:33)
[2022-09-22] MEDS: PIPERACILLIN/TAZOBACTAM 3.375 GM in DEXTROSE 5% 50 ML IV SCH ×2 (11:57→17:59)
--- NOTE | 2022-09-22 11:58 | NUR ---
DOCTOR NEVAEH WILL START ZOSYN INSTEAD OF RESUMING ROCEPHIN AT THIS TIME.
[2022-09-22] MEDS: SKINTEGRITY HYDROGEL TP SCH (13:04)
[2022-09-22] MEDS: GAUZE TP SCH (13:04)
--- NOTE | 2022-09-22 16:57 | NUR ---
PATIENT FAILURE OF SWALLOW EVALUATION. POSSIBLE RE-EVAL 09/23.
--- NOTE | 2022-09-22 16:58 | NUR ---
09/22/22 RD FOLLOW UP COMPLETED.PLEASE REFER TO NUTRITION ASSESSMENT UNDER CARE ACTIVITY FOR ESTIMATED NUTRITIONAL NEEDS. 1. WHEN/IF MEDICALLY APPROPRIATE, RESUME MECHANICAL SOFT DIET TOLERATED WITH WU BID (WILL PROVIDE 160 KCALS, 5 G PROTEIN) TO HELP WITH MALNUTRITION. -IF PT UNABLE TO TOLERATE PO INTAKE AND WHEN/IF MEDICALLY APPROPRIATE TO INITIATE TUBE FEED, RECOMMEND GLUCERNA 1.2 ALVIN WITH WU BID WITH A GOAL RATE OF 50ML/HR. -START @ 10ML/HR AND INCREASE BY 10 ML Q4H UNTIL GOAL RATE IS REACHED -FWF 200 ML Q6H OR PER MD THIS WILL PROVIDE (WITH D5 @ CURRENT RATE-408 KCAL, AND WU BID) 1200 ML VOLUME, 2008 KCAL, 77 GRAMS OF PROTEIN, AND 1766 ML FREE WATER, MEETING 100% OF ENERGY NEEDS; ADEQUATE 2. MONITOR NPO STATUS 3. RD TO FOLLOW-UP IN 2-3 DAYS PATIENT IS HIGH RISK. PENNY IRVING RD
[2022-09-22 20:34] VITALS: BP 111/62
[2022-09-23] MEDS: PIPERACILLIN/TAZOBACTAM 3.375 GM in DEXTROSE 5% 50 ML IV SCH ×5 (00:23→23:33)
[2022-09-23] MEDS: GAUZE TP SCH ×2 (01:00→13:03)
[2022-09-23] MEDS: SKINTEGRITY HYDROGEL TP SCH ×2 (02:52→13:04)
[2022-09-23 04:00] VITALS: BP 103/63
[2022-09-23 06:09] LABS: BASOPHILS % (AUTO) 0.3 % (0.0-2.0); EOSINOPHILS # (AUTO) 0.1 K/uL (0-0.4); EOSINOPHILS % (AUTO) 2.4 % (0.0-4.0); HEMATOCRIT 22.5 % (36-52); HEMOGLOBIN 7.5 g/dL (12.0-18.0); LYMPHOCYTES # (AUTO) 0.3 K/uL (2.0-11.5); LYMPHOCYTES % (AUTO) 12.6 % (20.5-51.1); MEAN CORPUSCULAR HEMOGLOBIN 29 pg (27-31); MEAN CORPUSCULAR HGB CONC 33 g/dL (33-37); MEAN CORPUSCULAR VOLUME 86.1 fL (80-94); MONOCYTES # (AUTO) 0.1 K/uL (0.8-1.0); NEUTROPHILS # (AUTO) 1.8 K/uL (1.8-7.7); NEUTROPHILS % (AUTO) 78.7 % (42.2-75.2); RED BLOOD CELL COUNT(AUTO) 2.62 MIL/uL (4.20-6.10); RED CELL DISTRIBUTION WIDTH 17.2 % (11.6-13.7); WHITE BLOOD COUNT (AUTO) 2.3 K/uL (4.8-10.8)
[2022-09-23 06:22] LABS: PLATELET COUNT (AUTO) 18 K/uL (140-450)
[2022-09-23] MEDS: DEXT 5% /NACL 0.9% 1,000 ML IV SCH (06:22)
[2022-09-23 06:55] LABS: ANION GAP 12.6 (8-16); CARBON DIOXIDE 24.1 mmol/L (21-32); CHLORIDE 100 mmol/L (98-107); CREATININE 0.9 mg/dL (0.6-1.3); GLUCOSE 177 mg/dL (74-106); POTASSIUM 3.7 mmol/L (3.5-5.1); SODIUM SERUM 133 mmol/L (136-145); UREA NITROGEN, BLOOD 16 mg/dL (7-18)
[2022-09-23] MEDS: ALBUTEROL 0.083% 2.5 MG/3 ML NEBU INH PRN ×2 (07:48→15:06)
[2022-09-23 08:00] VITALS: BP 93/44
[2022-09-23] MEDS: metFORMIN 500 MG TAB PO SCH ×2 (08:00→17:00)
--- NOTE | 2022-09-23 08:28 | NUR ---
ASSESSED PT ON 3L NC PT WAS SHOWING SIGNS OF SOB. I CALLED FOR RN TO BEDSIDE. WE AGREED DR NEEDS TO BE CONTACTED. DR COLLIER WAS ROUNDING ON PT AND ORDERED BIPAP. PT IS BEING TRANSPORTED FROM 105A TO 108 B.
--- NOTE | 2022-09-23 08:31 | NUR ---
PT TRANSPORT TO BED 108B PT ON 4L NC. RN HELPED TRANSPORT. BIPAP WAS SET UP AND PLACED ON PT. WILL CONTINUE TO MONITOR. PT BREATHING SEEMS TO IMPROVE ONCE BIPAP WAS PLACED ON HIM
[2022-09-23 08:44] LABS: PROTHROMBIN TIME 11.6 secs (10.8-13.4)
[2022-09-23] MEDS: FUROSEMIDE 20 MG TAB PO SCH (09:00)
[2022-09-23] MEDS: FLUoxetine 20 MG CAP PO SCH (09:00)
[2022-09-23] MEDS: glipiZIDE ER 5 MG TABER PO SCH (09:00)
[2022-09-23] MEDS: FINASTERIDE 5 MG TAB PO SCH (09:00)
[2022-09-23] MEDS: ALPRAZolam 0.5 MG TAB PO SCH ×3 (09:00→17:00)
[2022-09-23] MEDS: PANTOPRAZOLE 40 MG TABEC PO SCH (09:00)
[2022-09-23] MEDS: GABAPENTIN 300 MG CAP PO SCH ×3 (09:00→17:00)
[2022-09-23] MEDS: MAGNESIUM OXIDE 400 MG TAB PO SCH (09:00)
[2022-09-23] MEDS: TAMSULOSIN 0.4 MG CAP PO SCH (09:00)
[2022-09-23] MEDS: amLODIPine 5 MG TAB PO SCH (09:00)
[2022-09-23] MEDS: LOSARTAN 50 MG TAB PO SCH (09:00)
[2022-09-23 11:00] VITALS: BP 106/51
--- NOTE | 2022-09-23 12:56 | NUR ---
PHYSICAL THERAPY NOTE: UNABLE TO PERFORM PHYSICAL THERAPY TREATMENT TODAY. PER RN AND RT, PATIENT WAS PLACED ON BIPAP THIS MORNING AT 8:35AM DUE TO RESPIRATORY DISTRESS AND PATIENT IS NOT APPROPRIATE FOR PHYSICAL THERAPY TREATMENT AT THIS TIME.
--- NOTE | 2022-09-23 15:05 | NUR ---
pt nts by rt rn and rn student at bedside to assist. family also at bedside. pt was stable the whole time spo2 93% hr 84. sxn thick gurrola yellow secretions. pt was given prn tx. will continue to monitor.
[2022-09-23 16:00] VITALS: BP 94/47
--- NOTE | 2022-09-23 18:26 | NUR ---
PT INCREASINGLY SOB THIS AM, TRANSITIONED TO BIPAP PER MD ORDERS, NOW SATING 96% ON BIPAP. ONGOING WEAKNESS BUT ABLE TO FOLLOW SIMPLE COMMANDS. UNABLE TO GIVE PO MEDS D/T LETHARGY, MD AWARE. 2 UNITS PLATELETS GIVEN PER MD ORDERS, NO S/SX BLEEDING NOTED. TURNED Q2. VSS. ALL NEEDS MET, SAFETY AND COMFORT MEASURES MAINTAINED. Addendum: 09/23/22 at 1846 by Agency 11 BRANT GUO AWAITING ARRIVAL OF 2ND UNIT PLATELETS FROM BLOOD BANK.
--- NOTE | 2022-09-23 19:10 | NUR ---
RECEIVED PT FROM MORNING SHIFT NURSE. PT IS AOX1 AND BEDBOUND. PT IS ON BIPAP AND NPO EXCEPT MEDS. PT HAS IV ON LEFT AC GAUGE 20, SALINE LOCK. PT HAS BILATERAL EDEMA ON UPPER EXTREMITY AND STAGE 2 PRESSURE ULCER ON COCCYX. NO S/S OF RESPIRATORY DISTRESS NOTED. ALL SAFETY MEASURES IMPLEMENTED. BED IN LOW POSITION, BED WHEELS ON LOCK AND CALL LIGHT WITHIN REACH.
--- NOTE | 2022-09-23 20:29 | NUR ---
PT WAS NOT TOLERATING BIPAP, HR AND RESPIRATIONS WERE ELEVATED. REMOVED BIPAP, ORALLY AND NASALLY SXN'D SMALL WHITE AND BLOOD TINGED SECRETIONS. PLACED PT ON 2L NC, HR AND RESPIRATIONS IMPROVED, AND PT IS COMFORTABLE. RN AWARE, WILL CONT TO MONITOR.
--- NOTE | 2022-09-23 20:30 | NUR ---
RT INFORMED THAT PT IS NOW ON 2L NC SATING AT 95%. NO S/S OF RESPIRATORY DISTRESS NOTED. ALL SAFETY MEASURES IMPLEMENTED. BED IN LOW POSITION, BED WHEELS ON LOCK AND CALL LIGHT WITHIN REACH.
--- NOTE | 2022-09-23 22:25 | NUR ---
STARTED THE PLATELET TRANSFUSION TO PT WITH PRE- TRANSFUSION VS; BP-102/59, T-97.1, P-20. NO S/S OF RESPIRATORY DISTRESS NOTED. ALL SAFETY MEASURES IMPLEMENTED. BED IN LOW POSITION, BED WHEELS ON LOCK AND CALL LIGHT WITHIN REACH.
--- NOTE | 2022-09-23 23:15 | NUR ---
PLATELET TRANSFUSION WAS DONE TRANSFUSING TO PT WITH VS OF BP-107/55, P-89, T-97.3, R-20 SATING AT 93%.
--- NOTE | 2022-09-23 23:33 | NUR ---
SCHEDULED AND PRESCRIBED MEDICATION WAS GIVEN TO PT PER MD ORDER. ALL SAFETY MEASURES IMPLEMENTED. BED IN LOW POSITION, BED WHEELS ON LOCK AND CALL LIGHT WITHIN REACH.
[2022-09-24 00:09] VITALS: BP 107/55
[2022-09-24] MEDS: GAUZE TP SCH ×2 (01:04→13:00)
[2022-09-24] MEDS: SKINTEGRITY HYDROGEL TP SCH ×2 (01:04→13:00)
--- NOTE | 2022-09-24 02:00 | NUR ---
PT IS ON SLEEP. CHEST RISE AND FALL SYMMETRICALLY NOTED. RESPIRATION IS EVEN AND UNLABORED. NO S/S OF RESPIRATORY DISTRESS NOTED. ALL SAFETY MEASURES IMPLEMENTED. BED IN LOW POSITION, BED WHEELS ON LOCK AND CALL LIGHT WITHIN REACH.
[2022-09-24 04:00] VITALS: BP 102/53
--- NOTE | 2022-09-24 04:00 | NUR ---
MORNING CARE WAS DONE TO PT. CHANGED CHUCKS, LINENS AND GOWN. NO S/S OF RESPIRATORY DISTRESS NOTED. ALL SAFETY MEASURES IMPLEMENTED. BED IN LOW POSITION, BED WHEELS ON LOCK AND CALL LIGHT WITHIN REACH.
[2022-09-24] MEDS: PIPERACILLIN/TAZOBACTAM 3.375 GM in DEXTROSE 5% 50 ML IV SCH ×3 (05:22→18:42)
[2022-09-24 06:24] LABS: BASOPHILS % (AUTO) 0.3 % (0.0-2.0); EOSINOPHILS # (AUTO) 0.1 K/uL (0-0.4); EOSINOPHILS % (AUTO) 3.1 % (0.0-4.0); LYMPHOCYTES # (AUTO) 0.2 K/uL (2.0-11.5); LYMPHOCYTES % (AUTO) 7.4 % (20.5-51.1); MEAN CORPUSCULAR HEMOGLOBIN 29 pg (27-31); MEAN CORPUSCULAR HGB CONC 34 g/dL (33-37); MEAN CORPUSCULAR VOLUME 85.2 fL (80-94); MONOCYTES # (AUTO) 0.2 K/uL (0.8-1.0); MONOCYTES % (AUTO) 6.4 % (1.7-9.3); NEUTROPHILS # (AUTO) 2.3 K/uL (1.8-7.7); NEUTROPHILS % (AUTO) 82.8 % (42.2-75.2); RED BLOOD CELL COUNT(AUTO) 2.33 MIL/uL (4.20-6.10); RED CELL DISTRIBUTION WIDTH 17.4 % (11.6-13.7); WHITE BLOOD COUNT (AUTO) 2.7 K/uL (4.8-10.8)
[2022-09-24 06:36] LABS: HEMATOCRIT 19.9 % (36-52); HEMOGLOBIN 6.7 g/dL (12.0-18.0); PLATELET COUNT (AUTO) 18 K/uL (140-450)
[2022-09-24 06:39] LABS: ANION GAP 14.2 (8-16); CHLORIDE 100 mmol/L (98-107); GLUCOSE 193 mg/dL (74-106); POTASSIUM 3.2 mmol/L (3.5-5.1); SODIUM SERUM 135 mmol/L (136-145); UREA NITROGEN, BLOOD 16 mg/dL (7-18)
--- NOTE | 2022-09-24 06:42 | NUR ---
NOTIFIED DR. HERRING REGARDING HEMOGLOBIN OF 6.7, HEMATOCRIT-19.9 AND PLATELET-18. DR. HERRING ORDERED 1 UNIT OF PRBC. ORDER WAS MADE.
--- NOTE | 2022-09-24 07:15 | NUR ---
RECEIVED REPORT FROM NIGHTSHIFT NURSE. PT IS AWAKE AND RESTING IN BED. AOX1, PT CONFUSED. NO SIGNS OF DISTRESS. IV TO LEFT HAND, 20G, INTACT, FLUSHED, SALINE LOCK. PT ON 2L NC. LAB SHOWS LOW HGB, HCT, PLT. WILL PREPARE TO ADMINISTER PRBC'S. BED IN LOWEST POSITION, SIDE RAILS UP, CALL LIGHT WITHIN REACH.
--- NOTE | 2022-09-24 07:18 | NUR ---
PT IS STABLE. ENDORSED PT TO MORNING SHIFT NURSE FOR CONTINUITY OF CARE.
[2022-09-24] MEDS: metFORMIN 500 MG TAB PO SCH ×2 (07:58→17:00)
[2022-09-24 08:00] VITALS: BP 110/58
[2022-09-24] MEDS: MAGNESIUM OXIDE 400 MG TAB PO SCH (09:00)
[2022-09-24] MEDS: ALPRAZolam 0.5 MG TAB PO SCH ×3 (09:00→17:00)
[2022-09-24] MEDS: LOSARTAN 50 MG TAB PO SCH (09:00)
[2022-09-24] MEDS: amLODIPine 5 MG TAB PO SCH (10:15)
[2022-09-24] MEDS: FINASTERIDE 5 MG TAB PO SCH (10:15)
[2022-09-24] MEDS: PANTOPRAZOLE 40 MG TABEC PO SCH (10:15)
[2022-09-24] MEDS: FLUoxetine 20 MG CAP PO SCH (10:16)
[2022-09-24] MEDS: glipiZIDE ER 5 MG TABER PO SCH (10:16)
[2022-09-24] MEDS: GABAPENTIN 300 MG CAP PO SCH ×3 (10:18→17:00)
[2022-09-24] MEDS: FUROSEMIDE 20 MG TAB PO SCH (10:18)
[2022-09-24] MEDS: TAMSULOSIN 0.4 MG CAP PO SCH (10:19)
[2022-09-24 12:00] VITALS: BP 98/53
--- NOTE | 2022-09-24 13:00 | NUR ---
STARTED TRANSFUSION OF PRBC'S, 1220. TRANSFUSING 250MLS. PRE-TRANSFUSION VITALS(1220): TEMP: 96, PULSE: 85, RESP: 16, BP: 98/53, NO PAIN OR SIGNS OF DISTRESS 15 MIN JUSTO (1235): TEMP:96, PULSE: 86, RESP: 16, BP: 108/59, NO PAIN OR SIGNS OF DISTRESS INCREASED RATE. WILL CONTINUE TO MONITOR AND CONTINUE WITH CARE.
--- NOTE | 2022-09-24 13:20 | NUR ---
HELD 1300 MEDICATIONS. HELD ZOSYN, DT BLOOD TRANSFUSION ONGOING. HELD XANAX, PT BP LOW. HELD GABAPENTIN, PT UNABLE TO SWALLOW.
--- NOTE | 2022-09-24 15:30 | NUR ---
PT FINISHED BLOOD TRANSFUSION. PT SHOWS NO REACTION TO BLOOD TRANSFUSION. POST INFUSION VITALS (1530): TEMP:96, PULSE:84, RESP:18, BP:116/62(89), O2:96% RADIOLOGY WITH PT DOING CHEST XRAY AT BEDSIDE.
[2022-09-24 16:00] VITALS: BP 123/56
--- NOTE | 2022-09-24 17:00 | NUR ---
HELD 1700 SCHEDULED PO MEDICATIONS. PT UNABLE TO SWALLOW, INFORMED. INSTRUCTED TO KEEP PT NPO AT THIS TIME. PT AWAKE, RESTING IN BED. NO SIGNS OF DISTRESS, ON 2L NC.
[2022-09-24 18:29] LABS: HEMATOCRIT 24.6 % (36-52); HEMOGLOBIN 8.1 g/dL (12.0-18.0)
--- NOTE | 2022-09-24 19:00 | NUR ---
PT IS AWAKE, RESTING IN BED. IV TO LEFT HAND 20G, CLEAN AND STILL INTACT. PT SHOWS NO SIGNS OF PAIN, NO DISCOMFORT, NO DISTRESS. ENDORSED PT TO NIGHTSHIFT NURSE FOR CONTINUITY OF CARE.
--- NOTE | 2022-09-24 19:30 | NUR ---
RECEIVED REPORT FROM DAY SHIFT NURSE SARAH FOR CONTINUITY OF CARE. PATIENT IS A&O X1, NON VERBAL. PATIENT IS ON 2L NC; BREATHING IS NORMAL WITH SYMMETRICAL RISE AND FALL OF CHEST. IV IS A 20G IN THE L HAND, RUNNING NS 5ML TKO. EDEMA PRESENT IN UPPER LEFT ARM (IV SITE IN HAND DOES NOT APPEAR TO BE INFILTRATED) AND BILATERAL LOWER EXTREMITIES. PATIENT IS LYING IN SEMI-FOWLERS POSITION. BED IS IN LOWEST POSITION, WHEELS LOCKED, CALL LIGHT IN PLACE. WILL CONTINUE TO OBSERVE PATIENT.
[2022-09-24 20:00] VITALS: BP 107/80
[2022-09-24] MEDS ORDERED: KCL 20 MEQ IN 100 mL PREMIX 200 ML IV SCH (21:05)
--- NOTE | 2022-09-24 21:50 | NUR ---
MESSAGED [employer] M[employer] PHYSICIAN DR. DAMON FOR K RIDER FOR PATIENT. PATIENT IS NOT ABLE TO SWALLOW AND POTASSIUM IS 3.2. IMAGING CAME AND TOOK PATIENT FOR CT SCAN W/O CONTRAST AT 2118. DR. DAMON AUTHORIZED K RIDER AND ORDER WAS PUT IN. PATIENT RETURNED FROM CT SCAN AT 2134. PATIENT WAS RE-HOOKED UP TO OXYGEN AND IV. K RIDER WAS PULLED AND STARTED. PATIENT IS RESTING LYING SEMI-FOWLERS POSITION. WILL CONTINUE TO OBSERVE PATIENT.
[2022-09-25] VITALS: BP 114/63
[2022-09-25] MEDS: PIPERACILLIN/TAZOBACTAM 3.375 GM in DEXTROSE 5% 50 ML IV SCH ×4 (00:13→18:54)
[2022-09-25] MEDS: GAUZE TP SCH ×2 (01:00→13:00)
[2022-09-25] MEDS: SKINTEGRITY HYDROGEL TP SCH ×2 (01:00→13:00)
[2022-09-25 04:00] VITALS: BP 102/66
--- NOTE | 2022-09-25 04:00 | NUR ---
PATIENT HAS SLEPT THROUGHOUT THE NIGHT. PATIENT WAS CHANGED AND WOUND CARE WAS DONE. PATIENT HAD VOIDED ONCE AND HAD A BM THAT WAS LIGHT BROWN IN COLOR AND WELL FORMED. PATIENT CONTINUED HAVING BM WHILE BEING CHANGED. PATIENT WAS CLEANED AND WOUND WAS CLEANED PER MD INSTRUCTIONS (CLEAN WITH NS, PAT DRY, APPLY HYDROGEL AND FOAM DRESSING). PATIENT TOLERATED WELL. PATIENT HAS BEEN SUCTIONED THROUGHOUT THE NIGHT. WILL CONTINUE TO OBSERVE PATIENT.
--- NOTE | 2022-09-25 06:10 | NUR ---
RECEIVED PHONE CALL FROM [facility] AND SPOKE WITH BRANT JENKINS. RN REQUESTED THAT LATEST CT SCAN RESULTS BE SENT TO THEM SO THE DOCTOR CAN REVIEW IN THE MORNING FOR POSSIBLE TRANSFER IF BED BECOMES AVAILABLE. FAX NUMBER GIVEN WAS [phone]; RESULTS WERE FAXED TO [facility] WITH THE HEADING "ATTN: ALICE". PENDING RESPONSE FROM [facility] ON PATIENT'S ACCEPTANCE AND BED AVAILABILITY.
--- NOTE | 2022-09-25 07:28 | NUR ---
ENDORSED TO DAY SHIFT NURSE SMITH FOR CONTINUITY OF CARE. PATIENT IS STABLE.
--- NOTE | 2022-09-25 07:29 | NUR ---
RECEIVED REPORT FROM NIGHTSHIFT NURSE. PT IS ASLEEP IN BED, WOKE TO NAME AND TOUCH. ON 2L NASAL CANNULA. IV TO LEFT HAND, CLEAN, INTACT. NO SIGNS OF PAIN, DISTRESS OR DISCOMFORT. BED IN LOWEST POSITION, SIDE RAILS UP, CALL LIGHT WITHIN REACH. WILL CONTINUE WITH CARE.
[2022-09-25 08:00] VITALS: BP 117/84
[2022-09-25] MEDS: metFORMIN 500 MG TAB PO SCH ×2 (08:00→17:00)
[2022-09-25] MEDS: GABAPENTIN 300 MG CAP PO SCH ×3 (09:00→17:00)
[2022-09-25] MEDS: glipiZIDE ER 5 MG TABER PO SCH (09:00)
[2022-09-25] MEDS: FUROSEMIDE 20 MG TAB PO SCH (09:00)
[2022-09-25] MEDS: TAMSULOSIN 0.4 MG CAP PO SCH (09:00)
[2022-09-25] MEDS: amLODIPine 5 MG TAB PO SCH (09:00)
[2022-09-25] MEDS: LOSARTAN 50 MG TAB PO SCH (09:00)
[2022-09-25] MEDS: MAGNESIUM OXIDE 400 MG TAB PO SCH (09:00)
[2022-09-25] MEDS: ALPRAZolam 0.5 MG TAB PO SCH ×3 (09:00→17:00)
[2022-09-25] MEDS: PANTOPRAZOLE 40 MG TABEC PO SCH (09:00)
[2022-09-25] MEDS: FLUoxetine 20 MG CAP PO SCH (09:00)
[2022-09-25] MEDS: FINASTERIDE 5 MG TAB PO SCH (09:00)
[2022-09-25 12:00] VITALS: BP 103/56
[2022-09-25 12:16] LABS: BASOPHILS % (AUTO) 0.2 % (0.0-2.0); EOSINOPHILS # (AUTO) 0.1 K/uL (0-0.4); EOSINOPHILS % (AUTO) 3.3 % (0.0-4.0); HEMATOCRIT 23.4 % (36-52); HEMOGLOBIN 7.8 g/dL (12.0-18.0); LYMPHOCYTES # (AUTO) 0.3 K/uL (2.0-11.5); LYMPHOCYTES % (AUTO) 11.7 % (20.5-51.1); MEAN CORPUSCULAR HEMOGLOBIN 29 pg (27-31); MEAN CORPUSCULAR HGB CONC 34 g/dL (33-37); MEAN CORPUSCULAR VOLUME 86.5 fL (80-94); MONOCYTES # (AUTO) 0.1 K/uL (0.8-1.0); MONOCYTES % (AUTO) 6.1 % (1.7-9.3); NEUTROPHILS # (AUTO) 1.9 K/uL (1.8-7.7); NEUTROPHILS % (AUTO) 78.7 % (42.2-75.2); RED CELL DISTRIBUTION WIDTH 16.4 % (11.6-13.7); WHITE BLOOD COUNT (AUTO) 2.4 K/uL (4.8-10.8)
[2022-09-25 12:22] LABS: PLATELET COUNT (AUTO) 12 K/uL (140-450)
--- NOTE | 2022-09-25 13:27 | NUR ---
PHYSICAL THERAPY CO-SIGN The Physical Therapy Progress Notes documented by Airline Attendant have been reviewed. Reviewed/Co-Signed by: Meera Goldsmith PT Documentation Done by:CHALO JEROME CREDIT UNION FIELD EXAMINER Addendum: 09/25/22 at 1328 by Meera Goldsmith PT Amended: Links added.
[2022-09-25 16:00] VITALS: BP 115/61
--- NOTE | 2022-09-25 17:07 | NUR ---
09/25/22 RD FOLLOW UP COMPLETED PLEASE REFER TO NUTRITION ASSESSMENT UNDER CARE ACTIVITY FOR ESTIMATED NUTRITIONAL NEEDS. 1. MONITOR NPO STATUS 2. REPEAT SWALLOW EVAL, IF PT PASSES AND WHEN MEDICALLY APPROPRIATE, RESUME MECHANICAL SOFT DIET TOLERATED WITH WU BID (WILL PROVIDE 160 KCALS, 5 G PROTEIN DAILY) TO HELP WITH WOUND HEALING. 3. WHEN/IF MEDICALLY APPROPRIATE TO INITIATE TUBE FEED, RECOMMEND GLUCERNA 1.2 ALVIN WITH WU BID WITH A GOAL RATE OF 50ML/HR -START @ 10ML/HR AND INCREASE BY 10 ML Q4H UNTIL GOAL RATE IS REACHED -FWF 200 ML Q6H OR PER MD -WITH WU BID, WILL PROVIDE 1200 ML VOLUME, 1600 KCAL, 77 GRAMS OF PROTEIN, AND 1766 ML FREE WATER, MEETING 100% OF ENERGY NEEDS; ADEQUATE 4. RD TO FOLLOW-UP 2-3 DAYS, HIGH RISK REVIEWED BY RAVI STUBBS RD
--- NOTE | 2022-09-25 19:30 | NUR ---
RECEIVED REPORT FROM DAY SHIFT NURSE SARAH FOR CONTINUITY OF CARE. PATIENT IS A&O X1. PATIENT IS ON 4L NC; BREATHING IS NORMAL WITH SYMMETRICAL RISE AND FALL OF CHEST. IV HAS COME OUT AND A NEW ONE NEEDS TO BE INSERTED. EDEMA PRESENT IN UPPER LEFT ARM (IV SITE IN HAND DOES NOT APPEAR TO BE INFILTRATED) AND BILATERAL LOWER EXTREMITIES. PATIENT IS LYING IN SEMI-FOWLERS POSITION. BED IS IN LOWEST POSITION, WHEELS LOCKED, CALL LIGHT IN PLACE. WILL CONTINUE TO OBSERVE PATIENT.
[2022-09-25 20:00] VITALS: BP 122/62
--- NOTE | 2022-09-25 20:30 | NUR ---
A NEW IV WAS PLACED BY DAY SHIFT CHARGE NURSE GAVIN. NEW IV IS A 22G LEFT HAND. DR. DAMON HAD ORDERED AN NG TUBE FOR THE PATIENT DURING DAY SHIFT. ATTEMPTED TWICE TO INSERT NG TUBE WITH THE ASSISTANCE OF DAY SHIFT NURSE SARAH AND DAY SHIFT CHARGE NURSE GAVIN. ATTEMPTS WERE UNSUCCESSFUL; WE WERE UNABLE TO GET THE NG TUBE DOWN THE PATIENT'S THROAT. PATIENT FAILED SWALLOW EVALUATION. PATIENT WAS COUGHING A LOT DURING ATTEMPT; AND APPEARED EXHAUSTED AFTER SECOND ATTEMPT. WILL ATTEMPT NG TUBE INSERTION AGAIN LATER AFTER PATIENT HAS RESTED.
[2022-09-26] VITALS: BP 115/62
[2022-09-26] MEDS: PIPERACILLIN/TAZOBACTAM 3.375 GM in DEXTROSE 5% 50 ML IV SCH ×3 (00:14→12:11)
[2022-09-26] MEDS: GAUZE TP SCH ×2 (01:44→13:09)
[2022-09-26] MEDS: SKINTEGRITY HYDROGEL TP SCH ×2 (01:44→13:10)
[2022-09-26 04:00] VITALS: BP 133/61
--- NOTE | 2022-09-26 04:13 | NUR ---
RECEIVED PHONE CALL FROM PARKER AT [facility]. HE INQUIRED IF IT WAS STILL THE PLAN TO TRANSFER THE PATIENT. I INFORMED THAT I WASN'T AWARE OF ANY CHANGE TO NOT TRANSFER THE PATIENT. HE SAID OKAY AND THEN REQUESTED THAT THE RESULTS OF THE PCR BE FAXED TO HIM AT [phone]. HE ALSO STATED THAT [facility] IS REQUESTING TO RECEIVE DAILY VITAL SIGN UPDATES (EVERY 24 HOURS) ON THE PATIENT, AND ASKED TO BE CALLED DURING THE DAY AT [phone]. I TOLD HIM I WOULD NOTATE IT AND LET THE DAY SHIFT KNOW. THE FAX WAS SUCCESSFULLY SENT TO THE NUMBER PROVIDED BY PARKER. WILL INFORM DAY SHIFT NURSE.
--- NOTE | 2022-09-26 05:00 | NUR ---
PATIENT VOIDED AND HAD BM FOR THIRD TIME TONIGHT. FOAM DRESSING ON WOUND WAS CHANGED DUE TO FECAL MATTER ON BANDAGE. WOUND WAS CLEANED WITH NS, PAT DRIED, AND HYDROGUARD WAS PLACED ON WOUND. PATIENT WAS CLEANED AND NEW CHUCKS DIAPER WAS PLACED ON PATIENT. WILL CONTINUE TO OBSERVE PATIENT.
--- NOTE | 2022-09-26 06:15 | NUR ---
RN TODD AND I REATTEMPTED TO PLACE NG TUBE IN PATIENT WITH CHARGE NURSE LOC PRESENT. STILL UNABLE TO OBTAIN PROPER PLACEMENT OF NG TUBE (KEEPS GOING INTO PATIENT'S LUNG). WILL INFORM DAY SHIFT NURSE OF FAILED ATTEMPTS DURING CRAFT DEMONSTRATOR. PATIENT IS SITTING IN HIGH-FOWLERS POSITION. RESTING FROM ATTEMPT TO PLACE NG TUBE. WILL CONTINUE TO OBSERVE PATIENT.
[2022-09-26 06:52] LABS: BASOPHILS % (AUTO) 0.3 % (0.0-2.0); EOSINOPHILS # (AUTO) 0.1 K/uL (0-0.4); EOSINOPHILS % (AUTO) 3.1 % (0.0-4.0); HEMOGLOBIN 7.4 g/dL (12.0-18.0); LYMPHOCYTES # (AUTO) 0.2 K/uL (2.0-11.5); LYMPHOCYTES % (AUTO) 6.5 % (20.5-51.1); MEAN CORPUSCULAR HEMOGLOBIN 29 pg (27-31); MEAN CORPUSCULAR HGB CONC 34 g/dL (33-37); MEAN CORPUSCULAR VOLUME 86.5 fL (80-94); MONOCYTES # (AUTO) 0.2 K/uL (0.8-1.0); MONOCYTES % (AUTO) 9.7 % (1.7-9.3); NEUTROPHILS # (AUTO) 1.9 K/uL (1.8-7.7); NEUTROPHILS % (AUTO) 80.4 % (42.2-75.2); RED BLOOD CELL COUNT(AUTO) 2.54 MIL/uL (4.20-6.10); RED CELL DISTRIBUTION WIDTH 16.8 % (11.6-13.7); WHITE BLOOD COUNT (AUTO) 2.4 K/uL (4.8-10.8)
[2022-09-26 07:04] LABS: ANION GAP 17.9 (8-16); CARBON DIOXIDE 20.7 mmol/L (21-32); CHLORIDE 106 mmol/L (98-107); CREATININE 1.2 mg/dL (0.6-1.3); GLUCOSE 182 mg/dL (74-106); POTASSIUM 3.6 mmol/L (3.5-5.1); SODIUM SERUM 141 mmol/L (136-145); UREA NITROGEN, BLOOD 18 mg/dL (7-18)
--- NOTE | 2022-09-26 07:20 | NUR ---
RECEIVED BEDSIDE REPORT FROM STICKER ON BERNARDO FOR CONTINUITY OF CARE. ENDORSED BY BERNARDO THAT ATTEMPTED TO INSERT NGT BUT UNSUCCESSFUL. WILL FOLLOW TO MD. INITIAL ASSESSMENT DONE. AWAKE AND RESPONSIVE. NOTED LABORED BREATHING. ON CONT. O2 @ 4L/NC. NOT IN ANY DISTRESS NOTED. CALL LIGHT KEPT WITHIN REACH. WILL CONTINUE TO MONITOR.
--- NOTE | 2022-09-26 07:25 | NUR ---
ENDORSED TO DAY SHIFT NURSE ALICE FOR CONTINUITY OF CARE. PATIENT IS STABLE.
[2022-09-26 07:33] LABS: PLATELET COUNT (AUTO) 11 K/uL (140-450)
--- NOTE | 2022-09-26 07:34 | NUR ---
RECEIVED CALLED FROM LAB, CRITICAL RESULT PLATELET 11. DR. DAMON NOTIFIED AWAITING FOR RESPONSE.
[2022-09-26 08:00] VITALS: BP 112/60
[2022-09-26] MEDS: metFORMIN 500 MG TAB PO SCH (08:00)
--- NOTE | 2022-09-26 08:04 | NUR ---
RECEIVED ON SUPPLEMENTAL OXYGEN AT 4 LPM VIA NC; PER ALICE/BRANT NOC/RN INCREASED FIO2 FROM 2 LPM TO 4 LPM TO DESCENDING SATURATION 87%-88%; PATIENT PRESENTING WITH INCREASED WOB AT 32 BPM; SATURATION 90% ON 4 LPM VIA NC BREATH SOUNDS RALES BILATERAL; HHN PRN THERAPY GIVEN AT THIS TIME; INTERMITTENT STRONG LOOSE NPC DURING THERAPY; PATIENT APPROPRIATE FOR HIGH FLOW NASAL CANNULA
[2022-09-26 08:16] LABS: MAGNESIUM 1.6 mg/dL (1.8-2.4); PHOSPHORUS 4.6 mg/dL (2.5-4.9)
[2022-09-26] MEDS: TAMSULOSIN 0.4 MG CAP PO SCH (09:00)
[2022-09-26] MEDS: FINASTERIDE 5 MG TAB PO SCH (09:00)
[2022-09-26] MEDS: MAGNESIUM OXIDE 400 MG TAB PO SCH (09:00)
[2022-09-26] MEDS: glipiZIDE ER 5 MG TABER PO SCH (09:00)
[2022-09-26] MEDS: GABAPENTIN 300 MG CAP PO SCH ×2 (09:00→13:00)
[2022-09-26] MEDS: PANTOPRAZOLE 40 MG TABEC PO SCH (09:00)
[2022-09-26] MEDS: LOSARTAN 50 MG TAB PO SCH (09:00)
[2022-09-26] MEDS: amLODIPine 5 MG TAB PO SCH (09:00)
[2022-09-26] MEDS: FUROSEMIDE 20 MG TAB PO SCH (09:00)
[2022-09-26] MEDS: FLUoxetine 20 MG CAP PO SCH (09:00)
--- NOTE | 2022-09-26 09:41 | NUR ---
SCHEDULED PO MEDICATIONS NOT GIVEN, D/T PT CONDITION, UNABLE TO SWALLOW.
[2022-09-26] MEDS ORDERED: MAG SULF 2000 MG/WATER PREMIX 50 ML IV PRN (10:25)
--- NOTE | 2022-09-26 10:27 | NUR ---
RECEIVED NEW ORDER FROM DR. DAMON. CHANGE MAGNESIUM TO 2000MG IV PRN FOR MAG BELOW 1.8
--- NOTE | 2022-09-26 10:45 | NUR ---
PLACED ON VAPOTHERM HIGH FLOW NASAL CANNULA WITH SETTINGS NOTED PLUGGED INTO RED OUTLET TOLERATING WELL WITHOUT COMPLICATIONS NOTED EMPLOYEE'S REPRESENTATIVE TO MONITOR ALICE/RN NOTIFIED FOR HFNC SETTINGS
--- NOTE | 2022-09-26 11:15 | NUR ---
PER ROXANA/YARN DYER PATIENT PRESENTING WITH INTERMITTENT STRONG LOOSE NPC; HHN PRN THERAPY GIVEN AT THIS TIME SATURATION 96% ON FIO2 OF 40% VIA VAPOTHERM; POST HHN THERAPY TITRATED FIO2 TO 35% ALICE/RN NOTIFIED
--- NOTE | 2022-09-26 11:35 | NUR ---
PHYSICAL THERAPY NOTE: UNABLE TO PERFORM PHYSICAL THERAPY TREATMENT TODAY. NURSE DID NOT GIVE CLEARANCE DUE TO PATIENT'S RESPIRATORY DISTRESS DURING MOBILITY. PATIENT IS CURRENTLY ON HI FLOW AT 35L 35%, O2 SAT AT 93% WITH RTs WITHIN ROOM. WILL FOLLOW UP NEXT VISIT.
[2022-09-26 12:00] VITALS: BP 119/66
--- NOTE | 2022-09-26 12:10 | NUR ---
RECEIVED CALLED FROM [facility] SPOKE TO LE, ALL QUESTIONS ANSWERED.
[2022-09-26] MEDS: ALBUTEROL 0.083% 2.5 MG/3 ML NEBU INH PRN ×2 (12:17→12:18)
--- NOTE | 2022-09-26 12:20 | NUR ---
RECEIVED CALLED FROM [facility] SPOKE TO EVELYNE AND STATED SHE IS COMING TO SEEN THE PT AND MEETING WITH FAMILY.
--- NOTE | 2022-09-26 13:08 | NUR ---
SCHEDULED PO MEDICATIONS NOT GIVEN D/T PT CONDITION, UNABLE TO SWALLOW.
[2022-09-26 16:00] VITALS: BP 114/60
--- NOTE | 2022-09-26 16:05 | NUR ---
EVELYNE FROM [facility] AT BEDSIDE ASKING FOR ATIVAN AND MORPHINE ONCE. DR. DAMON NOTIFIED AWAITING FOR RESPONSE.
--- NOTE | 2022-09-26 16:15 | NUR ---
INFORMED BY HOSPICE NURSE THAT DR. PUENTE RECOMMENDS FOR COMFORT CARE. DR. DAMON NOTIFIED AND STATED SHE WILL CALL THE DAUGHTER.
[2022-09-26] MEDS ORDERED: LORazepam 2 MG/ML VIAL IVP PRN (17:15)
[2022-09-26] MEDS ORDERED: MORPHINE SULFATE 100 MG in NACL 0.9% 90 ML IV PRN (17:30)
--- NOTE | 2022-09-26 17:30 | NUR ---
INFORMED BY CHARGE NURSE REGARDING PT WILL BE ON COMFORT CARE.
--- NOTE | 2022-09-26 17:59 | NUR ---
REINSERTED IV TO RT HAND 22 G. WITH GOOD BLOOD RETURN. MORPHINE DRIP STARTED GIVEN BY LOURDES GUO. TOLERATING WELL.
--- NOTE | 2022-09-26 18:07 | NUR ---
PRN ATIVAN IVP GIVEN BY LOURDES . TOLERATING WELL.
[2022-09-26] MEDS ORDERED: MORPHINE SULFATE 50 MG in NACL 0.9% 45 ML IV PRN (18:30)
--- NOTE | 2022-09-26 19:25 | NUR ---
BEDSIDE REPORT GIVEN TO SU FOR CONTINUITY OF CARE. ENDORSED TO SU REGARDING PT ON COMFORT CARE. ON MORPHINE DRIP. PER DR. DAMON PT WILL OFF ON HIGH FLOW AND WILL BE ON O2 @ 2L/NC. PT ASLEEP AT THIS TIME. NO SIGNS OF ANY RESPIRATORY DISTRESS. REMAINS STABLE AT THIS TIME.
--- NOTE | 2022-09-26 19:26 | NUR ---
RECEIVED REPORT FROM DAY SHIFT NURSE ALICE FOR CONTINUITY OF CARE. FAMILY MEMBER AT BEDSIDE. PT SLEEPING, NO SIGNS OF ANY RESPIRATORY DISTRESS. STILL ON HI-FLOW 35L 35% SATTING AT 93%. WILL CALL RT TO MOVE TO 2L NC PER ENDORSEMENT. PT ON COMFORT MEASURES. ON MORPHINE DRIP 2MG/HR. SAFETY PRECAUTIONS IN PLACE. PT CLOSELY MONITORED. BRANT BROOKS COVERING, REPORT GIVEN.
[2022-09-26 20:00] VITALS: BP 101/47
--- NOTE | 2022-09-26 20:00 | NUR ---
Patient's Plan of Care was discussed and reviewed with CECILLE: SU
--- NOTE | 2022-09-26 22:25 | NUR ---
PT SLEEPING. NO ACUTE DISTRESS NOTED. V/S 98/47, 95, 23, 97.8, 92%.
[2022-09-27] VITALS: BP 92/44
--- NOTE | 2022-09-27 02:09 | NUR ---
NO ORDER PRESENT TO REMOVE HI-FLOW O2 AND CHANGE TO 2L NC. COVERING RN TODD AND CN MADE AWARE. CN ADVISED TO ENDORSE TO DAY SHIFT NURSE TO VERIFY WITH THE MD.
[2022-09-27 04:00] VITALS: BP 80/42
--- NOTE | 2022-09-27 04:02 | NUR ---
V/S 80/42, 19,88, 98.7, 90%. SLEEPING WITHOUT ANY SIGNS OF PAIN OR RESTLESSNESS.
--- NOTE | 2022-09-27 06:30 | NUR ---
DID ROUNDS. PT ASLEEP. STILL ON 2 MG/HR MORPHINE DRIP. V/S 79/36, 85 ,19, 97.4, 93%. NO DISCOMFORT NOTED. NOT ON RESPIRATORY DISTRESS.
[2022-09-27 07:02] LABS: BASOPHILS % (AUTO) 0.2 % (0.0-2.0); EOSINOPHILS # (AUTO) 0.1 K/uL (0-0.4); HEMATOCRIT 20.5 % (36-52); LYMPHOCYTES # (AUTO) 0.3 K/uL (2.0-11.5); LYMPHOCYTES % (AUTO) 11.2 % (20.5-51.1); MEAN CORPUSCULAR HEMOGLOBIN 29 pg (27-31); MEAN CORPUSCULAR HGB CONC 33 g/dL (33-37); MEAN CORPUSCULAR VOLUME 87.4 fL (80-94); MONOCYTES # (AUTO) 0.3 K/uL (0.8-1.0); MONOCYTES % (AUTO) 11.5 % (1.7-9.3); NEUTROPHILS # (AUTO) 1.8 K/uL (1.8-7.7); NEUTROPHILS % (AUTO) 73.1 % (42.2-75.2); RED BLOOD CELL COUNT(AUTO) 2.35 MIL/uL (4.20-6.10); RED CELL DISTRIBUTION WIDTH 17.1 % (11.6-13.7); WHITE BLOOD COUNT (AUTO) 2.4 K/uL (4.8-10.8)
[2022-09-27 07:06] LABS: HEMOGLOBIN 6.7 g/dL (12.0-18.0); PLATELET COUNT (AUTO) 8 K/uL (140-450)
[2022-09-27 07:08] LABS: ANION GAP 13.3 (8-16); CARBON DIOXIDE 25.4 mmol/L (21-32); CHLORIDE 109 mmol/L (98-107); CREATININE 1.3 mg/dL (0.6-1.3); GLUCOSE 153 mg/dL (74-106); POTASSIUM 3.7 mmol/L (3.5-5.1); SODIUM SERUM 144 mmol/L (136-145); UREA NITROGEN, BLOOD 20 mg/dL (7-18)
[2022-09-27 07:18] LABS: PHOSPHORUS 5.2 mg/dL (2.5-4.9)
--- NOTE | 2022-09-27 07:21 | NUR ---
RECEIVED CRITICAL LAB VALUE WBC-2.4, HG-6.7, PLATELET-8.0. DR JAMES WAS INFORMED. ALSO, INFORMED DR JAMES THAT PT STILL ON HI-FLOW. AWAITING FOR NEW ORDERS. WILL ENDORSE TO DAY SHIFT NURSE.
--- NOTE | 2022-09-27 07:42 | NUR ---
GAVE BEDSIDE REPORT TO DAY SHIFT NURSE TIA FOR CONTINUITY OF CARE. PT ON COMFORT MEASURES. ENDORSED TO FOLLOW-UP RESPONSE FROM DR JAMES ABOUT CRITICAL LAB AND HI-FLOW O2.
--- NOTE | 2022-09-27 14:30 | NUR ---
WOUND RE-EVAL NOTE: SACRAL WOUND REMAINS THE SAME, NO NEW WOUNDS/EXCORIATIONS. CONTINUE WITH CURRENT WOUND CARE MANAGEMENT AND PREVENTION MEASURES. DISCUSSED WITH PRIMARY RN.
--- NOTE | 2022-09-27 15:19 | NUR ---
RN SPOKE WITH THE PATIENTS DAUGHTER ARLEEN TO FOLLOW UP ON DC WITH [facility]. PATIENT WILL NOT GO ON SERVICE WITH [facility], STARTED ON COMFORT CARE INCLUDING MORPHINE GTT AND ATIVAN PRN.
[2022-09-27] MEDS ORDERED: MORPHINE SULFATE IV PRN (17:00)
[2022-09-27] MEDS ORDERED: NACL 0.9% IV PRN (17:00)
--- NOTE | 2022-09-27 19:30 | NUR ---
RECEIVED REPORT FROM DAY SHIFT NURSE FOR CONTINUITY OF CARE. FAMILY AT BEDSIDE. PT SLEEPING, NO SIGNS OF ANY RESPIRATORY DISTRESS. ON 2L NC SATING AT 89%.PT ON COMFORT MEASURES. ON MORPHINE DRIP 2MG/HR. SAFETY PRECAUTIONS IN PLACE.WILL CONTINUE TO MONITOR.
[2022-09-27 20:00] VITALS: BP 81/39
--- NOTE | 2022-09-27 20:00 | NUR ---
VITAL SIGNS FOLLOWS T 98.1, BP 89/31. RR 12 OK 88 O2 SAT AT 92%.FLACC 0. NO SIGNS OF DISTRESS. MORPHINE DRIP AT 2MG/HR.
[2022-09-28] VITALS: BP 86/40
--- NOTE | 2022-09-28 02:15 | NUR ---
PT ASLEEP IN BED. NO S/SX OF DISTRESS NOTED.O2 SAT AT 93%. BREATHING EVEN AND UNLABORED. ALL PRECAUTION IN PLACE .CALL LIGHT WITHIN REACH. WILL CONTINUE TO MONITOR.
--- NOTE | 2022-09-28 03:30 | NUR ---
PT APPEARS TO BE IN PAIN.INCREASED MORPHINE DRIP BY 2MGS/HR. O2 SAT AT 93%.ALL PRECAUTIONS IN PLACE. WILL CONTINUE TO MONITOR.
[2022-09-28 04:00] VITALS: BP 76/38
--- NOTE | 2022-09-28 07:28 | NUR ---
ENDORSED TO DAY SHIFT NURSE FOR CONTINUITY OF CARE. PT IS STABLE.
[2022-09-28 08:00] VITALS: BP 76/38
--- NOTE | 2022-09-28 08:00 | NUR ---
GOT REPORT FROM THE NIGHT NURSE, NO SOB PT RESTING IN BED.[id number]
[2022-09-28 08:43] LABS: BASOPHILS % (AUTO) 0.3 % (0.0-2.0); EOSINOPHILS # (AUTO) 0.1 K/uL (0-0.4); EOSINOPHILS % (AUTO) 2.2 % (0.0-4.0); HEMOGLOBIN 7.2 g/dL (12.0-18.0); LYMPHOCYTES # (AUTO) 0.7 K/uL (2.0-11.5); LYMPHOCYTES % (AUTO) 17.6 % (20.5-51.1); MEAN CORPUSCULAR HEMOGLOBIN 29 pg (27-31); MEAN CORPUSCULAR HGB CONC 33 g/dL (33-37); MEAN CORPUSCULAR VOLUME 89.1 fL (80-94); MONOCYTES # (AUTO) 0.4 K/uL (0.8-1.0); MONOCYTES % (AUTO) 10.9 % (1.7-9.3); NEUTROPHILS # (AUTO) 2.7 K/uL (1.8-7.7); RED BLOOD CELL COUNT(AUTO) 2.47 MIL/uL (4.20-6.10); RED CELL DISTRIBUTION WIDTH 17.1 % (11.6-13.7); WHITE BLOOD COUNT (AUTO) 3.8 K/uL (4.8-10.8)
[2022-09-28 08:49] LABS: PLATELET COUNT (AUTO) 5 K/uL (140-450)
[2022-09-28 09:23] LABS: ANION GAP 13.3 (8-16); CARBON DIOXIDE 25.9 mmol/L (21-32); CHLORIDE 111 mmol/L (98-107); CREATININE 1.8 mg/dL (0.6-1.3); GLUCOSE 88 mg/dL (74-106); POTASSIUM 4.2 mmol/L (3.5-5.1); SODIUM SERUM 146 mmol/L (136-145); UREA NITROGEN, BLOOD 27 mg/dL (7-18)
[2022-09-28 09:40] LABS: MAGNESIUM 2.1 mg/dL (1.8-2.4); PHOSPHORUS 6.1 mg/dL (2.5-4.9)
[2022-09-28 12:00] VITALS: BP 76/43
--- NOTE | 2022-09-28 12:26 | NUR ---
FAMILY AT BED SIDE INCREASED MORPHINE BY 2MG, PT BREATHING IS AGONAL. WITH 2LNC.[id number]
[2022-09-28 16:00] VITALS: BP 68/30
--- NOTE | 2022-09-28 16:17 | NUR ---
PT CURRENTLY ON COMFORT MEASURES
--- NOTE | 2022-09-28 17:59 | NUR ---
INCREASED THE MORPHINE TO 8ML/HR FOR BREATHING HEAVY AFTER SMALL POSITION.[id number]
--- NOTE | 2022-09-28 18:44 | NUR ---
PT BREATHING 8-9/MINUTES, BP IS 61/34, 77%O2 SATURATION, HR IS 91, O22LNC IS MAINTAINED. [id number]
--- NOTE | 2022-09-28 19:09 | NUR ---
09/28/22 RD FOLLOW UP COMPLETED.PLEASE REFER TO NUTRITION ASSESSMENT UNDER CARE ACTIVITY FOR ESTIMATED NUTRITIONAL NEEDS. 1. MONITOR NPO STATUS 2. WHEN/IF MEDICALLY APPROPRIATE TO INITIATE TUBE FEED, RECOMMEND GLUCERNA 1.2 ALVIN WITH WU BID WITH A GOAL RATE OF 50ML/HR RECOMMENDED BY RD 09/25/22 -START @ 10ML/HR AND INCREASE BY 10 ML Q4H UNTIL GOAL RATE IS REACHED -FWF 200 ML Q6H OR PER MD -WITH WU BID, WILL PROVIDE 1200 ML VOLUME, 1600 KCAL, 77 GRAMS OF PROTEIN, AND 1766 ML FREE WATER, MEETING 89% OF KCAL AND 100% OF PROTEIN NEEDS; ADEQUATE 3. CONSULT RD PRN 4. RD TO FOLLOW-UP 2-3 DAYS, HIGH RISK PENNY IRVING RD
--- NOTE | 2022-09-28 19:38 | NUR ---
GAVE REPORT TO THE NIGHT NURSE.[id number]
--- NOTE | 2022-09-28 19:40 | NUR ---
CALLED TO BEDSIDE PT NOT BREATHING AND ASYSTOLE ON TELE. FAMILY AT BEDSIDE. CALLED ER DOCTOR TO PRONOUNCE TIME OF .
--- NOTE | 2022-09-28 19:45 | NUR ---
DR MICHELLE AT BEDSIDE. PRONOUNCED TIME OF AT 1944.
--- NOTE | 2022-09-28 20:20 | NUR ---
INFORMED DR JAMES AND UMBRELLA FINISHER.
--- NOTE | 2022-09-28 21:30 | NUR ---
CALLED [employer] AND [employer]. NO CASE PER ANIMAL ASSISTANT. CALLED [employer] FOR [employer]M CONSULTANT.
--- NOTE | 2022-09-28 22:35 | NUR ---
BODY WAS PICKED UP BY MORTUARY. FAMILY WAS INFORMED.
== END 2022-09-28 19:45 | DRG 871 ==
LOC: MED 11:49 → MTU 15:09
PROVIDERS: ADMIT Family Medicine; ATTEND Family Medicine
PROC: 30233K1 Transfusion of Nonautologous Frozen Plasma into Peripheral Vein, Percutaneous Approach (ICD-10-PCS; 2022-09-18)
PROC: 30233R1 Transfusion of Nonautologous Platelets into Peripheral Vein, Percutaneous Approach (ICD-10-PCS; 2022-09-18)
PROC: 30233N1 Transfusion of Nonautologous Red Blood Cells into Peripheral Vein, Percutaneous Approach (ICD-10-PCS; 2022-09-19)
PROC: 5A09357 Assistance with Respiratory Ventilation, Less than 24 Consecutive Hours, Continuous Positive Airway Pressure (ICD-10-PCS; principal; 2022-09-23)
PROC: 5A09357 Assistance with Respiratory Ventilation, Less than 24 Consecutive Hours, Continuous Positive Airway Pressure (ICD-10-PCS; 2022-09-27)
DX: A41.9 Sepsis, unspecified organism (principal); J18.9 Pneumonia, unspecified organism; J96.00 Acute respiratory failure, unspecified whether with hypoxia or hypercapnia; E87.1 Hypo-osmolality and hyponatremia; D61.818 Other pancytopenia; J90 Pleural effusion, not elsewhere classified; C85.90 Non-Hodgkin lymphoma, unspecified, unspecified site; Z66 Do not resuscitate; Z20.822 Contact with and (suspected) exposure to COVID-19; D64.9 Anemia, unspecified; D69.6 Thrombocytopenia, unspecified; E83.42 Hypomagnesemia; E78.5 Hyperlipidemia, unspecified; I10 Essential (primary) hypertension; E11.9 Type 2 diabetes mellitus without complications; E11.65 Type 2 diabetes mellitus with hyperglycemia; E83.51 Hypocalcemia
CPT/HCPCS: 36415; 36430; 36600; 70450; 71045; 71250; 76604; 80048; 80076; 81003; 82140; 82150; 82272; 82607; 82803; 82948; 83036; 83690; 83735; 83880; 84100; 84436; 84439; 84443; 84479; 84484; 85018; 85025; 85045; 85049; 85610; 85730; 86886; 86900; 86901; 86920; 87081; 87635-QW; 93970; 94640; 94660; 97112; 97116; 97530; 99285; A6248; J0696; J2060; J2270; J2543; J3475; J3480; J7060; J7613; P9016; P9017; P9035; Q0092